=== PATIENT | female | born 1945 | race Caucasian/White ===

== ENCOUNTER → 2020-06-11 12:29 | Outpatient (CLI) | payer MEDICARE, SELFPAY ==
--- NOTE | ~2020-06-11 | MM_ITS ---
EXAMINATION: MM scrn joleen implant BI w alanis HISTORY: Screening mammogram, family history of breast cancer in her sister. TECHNIQUE: Craniocaudal and mediolateral oblique 3-D tomosynthesis images with implant displacement a nd synthetic 2-D images were generated. Craniocaudal and mediolateral oblique views of the breasts wi thout implant displacement were obtained using full field digital mammography. CAD analysis was submi tted and interpreted. COMPARISON: 08/29/2018, 07/11/2017, 04/13/2016 BREAST PARENCHYMAL COMPOSITION: There are scattered areas of fibroglandular density. FINDINGS: Silicone breast implants are present with evidence of bilateral rupture. There is no eviden ce of suspicious mass, calcification, or architectural distortion to suggest malignancy in either nichole ast. There has been no suspicious interval change. IMPRESSION: 1. No mammographic evidence of malignancy. 2. Recommend routine screening mammography in one year. BI-RADS Category 1: Negative Reviewed, dictated and finalized at location A. 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
== END ==
PROVIDERS: PCP Internal Medicine; Visit Provider Obstetrics & Gynecology
DX: Z12.31 Encounter for screening mammogram for malignant neoplasm of breast (principal)
CPT/HCPCS: 77063; 77067

== ENCOUNTER → 2021-01-06 13:34 | Outpatient (CLI) | payer MEDICARE, SELFPAY ==
--- NOTE | ~2021-01-06 | MR_ITS ---
EXAMINATION: MR cervical spine wo con EXAM DATE: 01/06/2021 14:47 INDICATION: Cervical radiculopathy, right-sided neck pain and shoulder pain. TECHNIQUE: Multi-sequential, multiplanar MR images of the cervical spine were obtained without contra st. Axial T2, axial T2 MERGE sequence. Sagittal T1, T2, T2 fat saturation images also obtained. Com parison is made to prior examination from 12/23/2016. FINDINGS: The spinal cord signal intensity and intrinsic morphology is normal. Cervicomedullary junc tion is normal in appearance. The C2-3 and C4-5 vertebral bodies are partially fused. Large anterior bridging fused endplate osteophytes from C3-C7 There is 2 mm anterolisthesis C7 on T1. Mild disc dise ase at C3-4 and mild to moderate at C7-T1. Paraspinal soft tissue is unremarkable. There are no suspi cious marrow signal abnormalities. Level by level evaluation: C2-C3: This level is fused. Uncovertebral joint arthropathy: None. Facet joint arthropathy: Moderate but fused left, mild right. Neural foraminal stenosis: No stenosis. Central canal stenosis: No stenosis. C3-C4: There is a mild diffuse disc bulge. Uncovertebral joint arthropathy: Moderate left, mild to moderate right. Facet joint arthropathy: Severe but fused left, mild right. Neural foraminal stenosis: Moderate left, mild right. Central canal stenosis: Mild. C4-C5: Disc does not extend beyond the endplate margin. Uncovertebral joint arthropathy: Mild bilateral. Facet joint arthropathy: Mild to moderate left, mild right. Neural foraminal stenosis: No stenosis. Central canal stenosis: No stenosis. C5-C6: Disc does not extend beyond the endplate margin. Uncovertebral joint arthropathy: Mild bilateral. Facet joint arthropathy: Mild bilateral. Neural foraminal stenosis: Mild right. Central canal stenosis: No stenosis. C6-C7: Disc does not extend beyond the endplate margin. Uncovertebral joint arthropathy: Mild bilateral. Facet joint arthropathy: Mild bilateral. Neural foraminal stenosis: No stenosis. Central canal stenosis: No stenosis. C7-T1: There is a mild diffuse disc bulge. Uncovertebral joint arthropathy: Mild bilateral. Facet joint arthropathy: Moderate right, mild to moderate left. Neural foraminal stenosis: Mild bilateral. Central canal stenosis: No stenosis. Compared to previous examination, some progression of the fusion of vertebral bodies, anterior large osteophyte. The left-sided C3-4 facet joints have fused in addition to previously fused C2-3 facet jace ints. Mild progression in other degenerative changes. IMPRESSION: 1. Partially fused cervical spine. 2. Left C3-4 neural foramina most narrowed. Reviewed, dictated and finalized at location B.
== END ==
PROVIDERS: PCP Internal Medicine; Visit Provider Nurse Practitioner Adult Health
DX: Z98.1 Arthrodesis status (principal); M47.22 Other spondylosis with radiculopathy, cervical region; M48.02 Spinal stenosis, cervical region
CPT/HCPCS: 72141

== ENCOUNTER → 2021-04-27 16:14 | Outpatient (CLI) | payer MEDICARE, SELFPAY ==
--- NOTE | ~2021-04-27 | MR_ITS ---
EXAMINATION: MR lumbar spine wo con DATE: 04/27/2021 16:47 INDICATION: Lumbar radicular pain. TECHNIQUE: Magnetic resonance imaging (MRI) of the lumbar spine was performed without intravenous con trast. Sequences included sagittal T2-weighted FSE, sagittal T2-weighted FS FSE, sagittal T1-weighted FSE, and axial T2-weighted FSE. COMPARISON: None FINDINGS: There is 6 degrees levocurvature of lumbar spine. There is a transitional segment at the lizbet mbosacral junction that is designated L5. Vertebral body heights are normal. There is severely decrea sed disc height at L4-L5 with endplate remodeling. The distal spinal cord signal intensity is normal. The conus medullaris is at L1. The following disc levels are specifically discussed: L1-L2: The disc is mildly bulging. There is mild right and moderate left facet joint osteoarthritis. There is no neural foraminal stenosis. There is mild central canal stenosis. L2-L3: The disc is bulging. There is moderate bilateral facet joint osteoarthritis. There is mild carlos ateral neural foraminal stenosis. There is mild central canal stenosis. L3-L4: The disc is bulging. There is severe bilateral facet joint osteoarthritis. There is mild bilat eral neural foraminal stenosis. There is no central canal stenosis. L4-L5: The disc is bulging and has an annular fissure. There is severe bilateral facet joint osteoart hritis. There is mild bilateral neural foraminal stenosis. There is mild central canal stenosis. L5-S1: The disc does not extend beyond the endplate margin. There is no facet joint osteoarthritis. T here is no neural foraminal stenosis. There is no central canal stenosis. IMPRESSION: 1. Severe lower lumbar spondylosis. Reviewed, dictated and finalized at location A.
== END ==
PROVIDERS: PCP Internal Medicine; Visit Provider Nurse Practitioner Family
DX: M54.16 Radiculopathy, lumbar region (principal); M47.816 Spondylosis without myelopathy or radiculopathy, lumbar region
CPT/HCPCS: 72148

== ENCOUNTER → 2021-08-18 16:01 | Outpatient (CLI) | payer MEDICARE, SELFPAY ==
--- NOTE | ~2021-08-18 | MM_ITS ---
EXAMINATION: MM scrn joleen implant BI w alanis HISTORY: Screening mammogram, family history of breast cancer in her sister. TECHNIQUE: Craniocaudal and mediolateral oblique 3-D tomosynthesis images with implant displacement a nd synthetic 2-D images were generated. Craniocaudal and mediolateral oblique views of the breasts wi thout implant displacement were obtained using full field digital mammography. CAD analysis was submi tted and interpreted. COMPARISON: 06/11/2020, 08/29/2018, 07/11/2017 BREAST PARENCHYMAL COMPOSITION: There are scattered areas of fibroglandular density. FINDINGS: Bilateral breast implant rupture is again noted. There is no evidence of suspicious mass, c alcification, or architectural distortion to suggest malignancy in either breast. There has been no s uspicious interval change. IMPRESSION: 1. No mammographic evidence of malignancy. 2. Recommend routine screening mammography in one year. BI-RADS Category 1: Negative Reviewed, dictated and finalized at location A. 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
== END ==
PROVIDERS: PCP Internal Medicine; Visit Provider Obstetrics & Gynecology
DX: Z12.31 Encounter for screening mammogram for malignant neoplasm of breast (principal)
CPT/HCPCS: 77063; 77067

== ENCOUNTER → 2022-03-23 17:07 | Outpatient (CLI) | payer MEDICARE, SELFPAY ==
--- NOTE | ~2022-03-23 | MR_ITS ---
EXAMINATION: MR cervical spine wo con DATE: 03/23/2022 17:43 INDICATION: Myelopathy. TECHNIQUE: Magnetic resonance imaging (MRI) of the cervical spine was performed without intravenous c ontrast. Sequences included sagittal T2-weighted FSE, sagittal T2-weighted FS FSE, sagittal T1-weight ed FSE, axial MERGE, and axial T2-weighted FSE. COMPARISON: Cervical spine MRI 01/06/2021 FINDINGS: There is 2 mm anterolisthesis of C7 on T1. Vertebral body heights are normal. There is mild ly decreased disc height at C4-C5, C5-C6, and C6-C7. There are bulky bridging anterior endplate osteo phytes from C3 to C7, consistent with diffuse idiopathic skeletal hyperostosis (DISH). The spinal cor d signal intensity is normal. There are bilateral mastoid effusions. The following disc levels are sp ecifically discussed: C2-C3: The disc does not extend beyond the endplate margin. There is ankylosis of the uncovertebral j oints without hypertrophy. There is ankylosis of the left facet joint with mild hypertrophy. There is mild left neural foraminal stenosis. There is no central canal stenosis. C3-C4: There is a left central extrusion. There is mild right and severe left uncovertebral joint hyp ertrophy. There is mild right facet joint osteoarthritis. There is ankylosis of left facet joint with severe hypertrophy. There is moderate left neural foraminal stenosis. There is mild central canal st enosis. C4-C5: The disc does not extend beyond the endplate margin. There is no uncovertebral joint hypertrop hy. There is mild bilateral facet joint hypertrophy. There is no neural foraminal stenosis. There is no central canal stenosis. C5-C6: The disc does not extend beyond the endplate margin. There is no uncovertebral joint hypertrop hy. There is no facet joint hypertrophy. There is no neural foraminal stenosis. There is no central c anal stenosis. C6-C7: The disc does not extend beyond the endplate margin. There is no uncovertebral joint hypertrop hy. There is no facet joint hypertrophy. There is no neural foraminal stenosis. There is no central c anal stenosis. C7-T1: The disc does not extend beyond the endplate margin. There is no uncovertebral joint osteoarth ritis. There is severe bilateral facet joint osteoarthritis. There is mild bilateral neural foraminal stenosis. There is no central canal stenosis. IMPRESSION: 1. Stable moderate left neural foraminal stenosis at C3-C4. Otherwise mild cervical spondylosis, stab le from 01/06/2021. 2. DISH. Reviewed, dictated and finalized at location A. IMPRESSION: 1. Stable moderate left neural foraminal stenosis at C3-C4. Otherwise mild cerv ical spondylosis, stable from 01/06/2021. 2. DISH.
== END ==
PROVIDERS: PCP Internal Medicine; Visit Provider Nurse Practitioner Acute Care
DX: M48.02 Spinal stenosis, cervical region (principal); M47.812 Spondylosis without myelopathy or radiculopathy, cervical region; M48.12 Ankylosing hyperostosis [Forestier], cervical region
CPT/HCPCS: 72141

== ENCOUNTER → 2022-08-24 16:11 | Outpatient (CLI) | payer MEDICARE, SELFPAY ==
--- NOTE | ~2022-08-24 | XR_ITS ---
EXAM: XR shoulder RT min 2V DATE: 08/24/2022 17:00 HISTORY: Pain in right shoulder . COMPARISON: 04/18/2016, MR shoulder 02/28/2017. FINDINGS: Normal mineralization. No fracture or dislocation. No lytic or blastic lesion. Moderate AC joint hypertrophy. Moderate glenohumeral osteoarthritis. Cysts in the superolateral aspect of the hu meral head. Superior humeral head migration. No erosion or periosteal change. Soft tissues within nor mal limits. IMPRESSION: Moderate polyarticular osteoarthritis. Rotator cuff pathology. Reviewed, dictated and finalized at location K. 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
--- NOTE | ~2022-08-24 | MR_ITS ---
EXAMINATION: MR lumbar spine wo con DATE: 08/24/2022 17:03 INDICATION: Radiculopathy, lumbar region. TECHNIQUE: Magnetic resonance imaging (MRI) of the lumbar spine was performed without intravenous con trast. Sequences included sagittal T2-weighted FSE, sagittal T2-weighted FS FSE, sagittal T1-weighted FSE, and axial T2-weighted FSE. COMPARISON: Lumbar spine MRI 04/27/2021 FINDINGS: There is 5 degrees levocurvature of lumbar spine. There is a transitional segment at the lizbet mbosacral junction that is designated L5. Vertebral body heights are normal. There is a hemangioma in T11 vertebral body. There is severely decreased disc height at L4-L5 with endplate remodeling. The d istal spinal cord signal intensity is normal. The conus medullaris is at L1. The following disc level s are specifically discussed: L1-L2: The disc is mildly bulging. There is mild bilateral facet joint osteoarthritis. There is mild left neural foraminal stenosis. There is mild central canal stenosis. L2-L3: The disc is bulging. There is severe bilateral facet joint osteoarthritis. There is mild bilat eral neural foraminal stenosis. There is mild central canal stenosis. L3-L4: The disc is bulging. There is severe bilateral facet joint osteoarthritis. There is mild bilat eral neural foraminal stenosis. There is mild central canal stenosis. L4-L5: The disc is bulging and has an annular fissure. There is severe bilateral facet joint osteoart hritis. There is mild bilateral neural foraminal stenosis. There is mild central canal stenosis. L5-S1: The disc does not extend beyond the endplate margin. There is no facet joint hypertrophy. Ther e is no neural foraminal stenosis. There is no central canal stenosis. IMPRESSION: 1. Severe lower lumbar spondylosis, stable from 04/27/2021. Reviewed, dictated and finalized at location A. 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
== END ==
PROVIDERS: PCP Internal Medicine; Visit Provider Nurse Practitioner Family
DX: M54.16 Radiculopathy, lumbar region (principal); M25.511 Pain in right shoulder; M43.06 Spondylolysis, lumbar region; M19.011 Primary osteoarthritis, right shoulder
CPT/HCPCS: 72148; 73030

== ENCOUNTER → 2022-09-22 16:46 | Outpatient (CLI) | payer MEDICARE, SELFPAY ==
--- NOTE | ~2022-09-22 | MM_ITS ---
EXAMINATION: MM scrn joleen implant BI w alanis HISTORY: Screening mammogram TECHNIQUE: Craniocaudal and mediolateral oblique 3-D tomosynthesis images with implant displacement a nd synthetic 2-D images were generated. Craniocaudal and mediolateral oblique views of the breasts wi thout implant displacement were obtained using full field digital mammography. CAD analysis was submi tted and interpreted. COMPARISON: 07/29/2021, 06/11/2020, bilateral implant screening mammogram examinations BREAST PARENCHYMAL COMPOSITION: There are scattered areas of fibroglandular density. FINDINGS: Status post bilateral augmentation mammoplasty. There is no evidence of suspicious mass, ca lcification, or architectural distortion to suggest malignancy in either breast. There has been no langston spicious interval change. IMPRESSION: 1. No mammographic evidence of malignancy. 2. Recommend routine screening mammography in one year. BI-RADS Category 1: Negative Reviewed, dictated and finalized at location A. IC SERVICE DIRECTOR
== END ==
PROVIDERS: PCP Internal Medicine; Visit Provider Obstetrics & Gynecology
DX: Z12.31 Encounter for screening mammogram for malignant neoplasm of breast (principal); Z98.82 Breast implant status
CPT/HCPCS: 77063; 77067

== ENCOUNTER 2023-05-06 10:17 | Outpatient (CLI) | payer MEDICARE, SELFPAY ==
--- NOTE | 2023-05-06 10:36 | ECG_ITS ---
Measurements Intervals Ryder Rate: 52 P: 59 LA: 159 QRS: 18 QRSD: 94 T: 60 QT: 408 QTc: 380 Interpretive Statements SINUS BRADYCARDIA OTHERWISE NORMAL ECG NO PREVIOUS ECG AVAILABLE FOR COMPARISON Electronically Signed On 05-06-2023 14:01:03 CDT by Kaleb Schwarz M.D.
[2023-05-06 11:01] LABS: Hemoglobin 13.3 g/dL (12.0-15.0); Mean Corpuscular HGB Conc 32.4 g/dl (32-36); Mean Corpuscular Volume 95.6 fl (80-100); Mean Platelet Volume 9.3 fl (7.4-10.4); Platelet Count Result 291 k/mm3 (150-375); Red Blood Count 4.29 M/mm3 (4.2-5.4); Red Cell Distribution Width 12.7 % (11.5-14.5); White Blood Count 8.1 K/mm3 (4.5-10.0)
[2023-05-06 11:13] LABS: Appearance Urine Clear (Clear); Bacteria Urine None Seen /hpf; Bilirubin Urine Negative (Negative); Blood Urine Negative (Negative); Color Urine Yellow (Yellow); Glucose Urine UA Negative (Negative); Ketones Urine Negative (Negative); Leukocyte Esterase Ur 1+ LEU/UL (Negative); Need Manual Microscopic Reviewed; Nitrate Urine Negative (Negative); Non Pathogenic Casts 0-2; Protein Urine Negative (Negative); RBC Urine 0-2 /hpf (0-2); Specific Grav Ur 1.014 (1.001-1.035); Squamous Epithelial Cell Urine Occasional /hpf (Few); Urobilinogen Urine 0.2 mg/dL (<2.0); WBC Urine 0-5 /hpf; pH Urine 5.5 (5.0-9.0)
[2023-05-06 11:13] LABS: Prothrombin Time 13.7 Seconds (11.1-14.7)
[2023-05-06 11:35] LABS: Add Urine Microscopic? YES
== END 2023-05-06 10:18 | disposition home or self-care (01) ==
LOC: ANHSURGERY 10:23
PROVIDERS: PCP Internal Medicine; Visit Provider Neurological Surgery
DX: Z01.818 Encounter for other preprocedural examination (principal); M46.1 Sacroiliitis, not elsewhere classified; R00.1 Bradycardia, unspecified
CPT/HCPCS: 36415; 81001; 85027; 85610; 85730; 86850; 86900; 86901; 93005

== ENCOUNTER 2023-05-10 13:58 | Inpatient (IN) | payer MEDICARE, SELFPAY ==
--- NOTE | 2023-05-02 11:26 | PC.NURSE ---
Report to the Outpatient Waiting Room, entrance under the green pavilion located off [facility], at time _0800 on date _05/10/23 . Planned Procedure Time: __1000 . Time changes happen often and if your time is changed the preop area will call you the afternoon before. - You and your visitor will be asked to self-screen and do not enter if you have any COVID symptoms. - A mask is optional within the hospital at this time. Patients may have clear liquids (water, carbonated beverages, clear teas, apple juice) until 3 hours prior to surgery with a maximum of 20 ounces. - No food from midnight until time of surgery - Infants may have breast milk until 4 hours before surgery, formula 6 hours prior to surgery. - Children will be allowed to drink immediately following surgery. If applicable, please bring a bottle or sippy cup to assist with drinking. Juice, water, soda, and popsicles are readily available. For infants on formula, please bring formula the day of surgery. Pacifiers are allowed. Take the following medications with a SIP of water the morning of surgery: ___CARVEDILOL DO NOT STOP ANY OF YOUR OTHER PRESCRIPTION MEDICATIONS PRIOR TO SURGERY ?EXCEPT THE FOLLOWING Medications to discontinue per physician __RIZWANA JARVIS Please no make-up, nail bengali, hairspray, perfume, deodorant, or body powder the day of surgery. No jewelry (including any body piercings) or valuables the day of surgery, leave them at home. Please take a shower or bath the night before, or the morning of, surgery with an antibacterial soap. Wear comfortable, loose fitting clothing. Children are encouraged to wear pajamas. - Jewelry must be removed prior to entering the operating room. Rings and piercings that are not removed may be cut off. - The hospital will not accept responsibility for valuables. - Please leave all valuables, including medications, at home the day of surgery. If you are going home after surgery, a licensed water taxi driver must drive you home. - NO public transportation without another adult if you receive anesthesia. - We recommend that an adult stay with you for 24 hours following discharge. - We also recommend that you do not drive, make important decision, drink alcoholic beverages, or take any drugs that were not prescribed by your health care provider for at least 24 hours after your discharge time. For Pediatric surgeries, we recommend two adults accompany the child home. Follow any additional instructions given to you from your surgeon. If you or anyone in your household have experienced Covid symptoms in the past week, please notify your surgeon or the nurse liaison at the phone number below for possible testing. Telephone instructions given to __PATIENT and asked if any additional questions and then verbalized understanding. Patient advised to call surgeon office or pre surgery nurse liaison [phone] if any additional questions.
[2023-05-02 11:35] VITALS: BMI 23.4
--- NOTE | 2023-05-09 15:10 | WPDANESEPPF ---
Anes - Initial Pre Proc Eval Procedure: Operation Date: 05/10/23 10:00 Proposed Procedures p Right Sacroiliac Joint Fusion - Daryl Gray MD Date/Time: 05/09/23 15:10 Surgeon: Daryl Gray MD Pre Op Diagnosis: Right Scoliosis Patient Data Age: 78 Gender: F Height: 1.57 m Weight: 58.1 kg Allergies Allergy/AdvReac Type Severity Reaction Status Date / Time codeine Allergy Severe Vomiting Verified 05/10/23 08:29 tramadol Allergy Severe Vomiting Verified 05/10/23 08:29 Quinolones Allergy Mild Swelling Verified 05/10/23 08:29 trazodone Allergy Mild Jittery Verified 05/10/23 08:29 Home Medications Medication Instructions Recorded Confirmed Type hydrocortisone 2.5 % topical cream 1 applic RECTAL DAILY PRN 02/02/23 05/10/23 Rx with perineal applicator hemorrhoids #30 grams (Anusol-HC) carvedilol 12.5 mg tablet 12.5 mg PO Q12H #180 tabs 03/12/23 05/10/23 Rx amitriptyline 25 mg tablet 25 mg PO QHS #90 tabs 03/16/23 05/10/23 Rx alprazolam 0.5 mg tablet 0.5 mg PO QHS PRN anxiety #30 tabs 05/02/23 05/10/23 Rx amlodipine 5 mg tablet 5 mg PO HS 05/02/23 05/10/23 History diclofenac sodium 100 mg 100 mg PO HS 05/02/23 05/10/23 History tablet,extended release 24 hr fluoxetine 40 mg capsule 40 mg PO HS 05/02/23 05/10/23 History fluticasone propionate 50 2 spray intranasal PRN PRN nasal 05/02/23 05/10/23 History mcg/actuation nasal congestion spray,suspension omeprazole 20 mg capsule,delayed 20 mg PO HS 05/02/23 05/10/23 History release pravastatin 20 mg tablet 20 mg PO HS 05/02/23 05/10/23 History Patient hx anesthesia problems: post op nausea/vomiting (states severe with pain medications; has used IV Tylenol with some success for PONV) Family hx anesthesia problems: none Results Review: All pre-operative results and documents have been reviewed as part of the pre-operative evaluation. [facility] Past Medical History Medical History Abdominal cramps Abnormal weight loss Acute pain of right shoulder Adhesive capsulitis of right shoulder Adult general medical exam Anemia, unspecified Back pain, chronic Diarrhea Encounter for HCV screening test for low risk patient Generalized abdominal pain Hyperkalemia Incomplete tear of right rotator cuff Insomnia, unspecified Osteoarthritis of spine with radiculopathy, cervical region Other chronic pain Other fatigue Primary osteoarthritis, right shoulder Pure hypercholesterolemia Family History Family History Mother Patient's mother is Hypertension Depression Anxiety Heart problem Father Alcoholism Sibling Cancer Hypertension Heart problem Other Family history of alcoholism Family history of arthritis Family history of cardiovascular disease Family history of malignant neoplasm Social History Social History Smoking packs per day: 1 Smoking cigarettes per day: 20.0 Years smoked: 35 Smoking pack-years: 35.00 Smoking status: Former smoker Tobacco type: cigarettes Second hand tobacco smoke exposure: No Smoking end date: 09/23/99 Alcohol intake: current Drinks per week: 3 Substance use: never Lack of Transportation: No Lack of Food: Never True Current Housing: I Have Housing Concerned About Future Housing: No Difficulty Paying Gas/Electric Bills: No Difficulty Paying for Meds: No Currently Unemployed: No Education: High School Diploma/GED Difficulty w/ Childcare or Family Care: No Living arrangements: alone Occupation/Education: retired Gender identity (if verbalized by the patient): Female Sexual Orientation (if Verbalized by the Patient): Straight or Heterosexual Spiritual care concerns: No Anes - Eval Final PreProcedure Day of Procedure 05/09/23 15:10 Patient weight: normal Heart:
[2023-05-10] VITALS (12 sets, daily range): BP systolic 126–160; BP diastolic 44–64; PULSE 54–77; RESP 12–20; TEMP 35.3–36.6; O2SAT 95–100
--- NOTE | ~2023-05-10 | XR_ITS ---
EXAMINATION: XR fluoroscopy no charge DATE: 05/10/2023 11:48 INDICATION: Right sacroiliac joint effusion. TECHNIQUE: 3 intraoperative fluoroscopic views of the pelvis were obtained. I was not present. Fluoro scopy exposure time was 2 minutes 4 seconds. COMPARISON: None. FINDINGS: There are changes of ankylosis procedure of right sacroiliac joint with 3 screws. There is severe lumbar spondylosis. IMPRESSION: 1. Ankylosis procedure of right sacroiliac joint. Reviewed, dictated and finalized at location E.
[2023-05-10] MEDS: LACTATED RINGERS 1,000 ML 30 ML IV CONT ×2 (08:40→12:44)
[2023-05-10] MEDS: IBUPROFEN IV 800 MG/200 ML 800 MG/200 ML BAG 400 MG IVPB (10:08)
[2023-05-10] MEDS: SCOPOLAMINE 1.5 MG PATCH TRANSDERM (10:08)
--- NOTE | 2023-05-10 10:12 | PM.IMHP ---
H&P: HPI History of Present Illness Date/Time: 05/10/23 10:12 Chief Complaint: Right sacroiliac joint pain Narrative: Ivanna is a 78-year-old female with right SI joint pain presents for right SI joint fusion from a lateral open approach. She has not changed appreciably since we last saw her. She does not have specific muscle group weakness or dermatomal numbness. She is not having bowel or bladder difficulty. Review of Systems Review of Systems: Patient denies shortness of breath, cough, fever, chills, nausea, vomiting, weight loss, weight gain, chest pain, dysuria. She has sacroiliac pain as above. Review of systems is otherwise negative on 12 systems except as noted elsewhere. [facility]LY [facility], [facility] Past Medical History Medical History Abdominal cramps Abnormal weight loss Acute pain of right shoulder Adhesive capsulitis of right shoulder Adult general medical exam Anemia, unspecified Back pain, chronic Diarrhea Encounter for HCV screening test for low risk patient Generalized abdominal pain Hyperkalemia Incomplete tear of right rotator cuff Insomnia, unspecified Osteoarthritis of spine with radiculopathy, cervical region Other chronic pain Other fatigue Primary osteoarthritis, right shoulder Pure hypercholesterolemia Family History Family History Mother Patient's mother is Hypertension Depression Anxiety Heart problem Father Alcoholism Sibling Cancer Hypertension Heart problem Other Family history of alcoholism Family history of arthritis Family history of cardiovascular disease Family history of malignant neoplasm Social History Social History Smoking packs per day: 1 Smoking cigarettes per day: 20.0 Years smoked: 35 Smoking pack-years: 35.00 Smoking status: Former smoker Tobacco type: cigarettes Second hand tobacco smoke exposure: No Smoking end date: 09/23/99 Alcohol intake: current Drinks per week: 3 Substance use: never Lack of Transportation: No Lack of Food: Never True Current Housing: I Have Housing Concerned About Future Housing: No Difficulty Paying Gas/Electric Bills: No Difficulty Paying for Meds: No Currently Unemployed: No Education: High School Diploma/GED Difficulty w/ Childcare or Family Care: No Living arrangements: alone Occupation/Education: retired Gender identity (if verbalized by the patient): Female Sexual Orientation (if Verbalized by the Patient): Straight or Heterosexual Spiritual care concerns: No Meds Home Medications and Allergies Home Medications Medication Instructions Recorded Confirmed Type hydrocortisone 2.5 % topical cream 1 applic RECTAL DAILY PRN 02/02/23 05/10/23 Rx with perineal applicator hemorrhoids #30 grams (Anusol-HC) carvedilol 12.5 mg tablet 12.5 mg PO Q12H #180 tabs 03/12/23 05/10/23 Rx amitriptyline 25 mg tablet 25 mg PO QHS #90 tabs 03/16/23 05/10/23 Rx alprazolam 0.5 mg tablet 0.5 mg PO QHS PRN anxiety #30 tabs 05/02/23 05/10/23 Rx amlodipine 5 mg tablet 5 mg PO HS 05/02/23 05/10/23 History diclofenac sodium 100 mg 100 mg PO HS 05/02/23 05/10/23 History tablet,extended release 24 hr fluoxetine 40 mg capsule 40 mg PO HS 05/02/23 05/10/23 History fluticasone propionate 50 2 spray intranasal PRN PRN nasal 05/02/23 05/10/23 History mcg/actuation nasal congestion spray,suspension omeprazole 20 mg capsule,delayed 20 mg PO HS 05/02/23 05/10/23 History release pravastatin 20 mg tablet 20 mg PO HS 05/02/23 05/10/23 History Allergies Allergy/AdvReac Type Severity Reaction Status Date / Time codeine Allergy Severe Vomiting Verified 05/10/23 08:29 tramadol Allergy Severe Vomiting Verified 05/10/23 08:29 Quinolones Allergy Mild Swelling Verified 05/10/23 08:29 trazodone Allergy Mild Jittery Guzman
[2023-05-10] MEDS: ceFAZolin 2 GM/D5W 50 ML 2 GM/50 ML BAG IVPB (10:13)
--- NOTE | 2023-05-10 10:14 | WPDHPUPDATE1 ---
History and Physical Update Update Date/Time: 05/10/23 10:14 History and Physical has been reviewed, including an updated exam of the patient. There are NO changes in the patient's condition. Risks, benefits, and alternatives have been discussed and questions answered. Patient agrees to proceed with procedure.
[2023-05-10] MEDS: LIDO 1%/EPINEPHRINE 1:100,000 50 ML VIAL 30 ML INFILTRATE (10:47)
--- NOTE | 2023-05-10 11:46 | W.PM.PROC2 ---
Procedure Note - Detailed Date of Procedure 05/10/23 Pre-op Diagnosis Right Scoliosis Post-op Diagnosis Same Procedure Performed Right sacroiliac joint fusion, open, lateral Surgeon Daryl Gray MD Anesthesia General Description of Procedure Patient was brought to the operating room in the supine position, was sedated, intubated placed under general anesthesia in routine fashion. She was then turned into the prone position on gel rolls. The area of operation on her right buttock was examined, marked for incision, prepped and draped in routine sterile fashion. Incision was marked using fluoroscopy based on the outline of the sacrum. Inlet and outlet views were also confirmed. The area of incision was injected with 0.5% lidocaine with [id number] epinephrine. Intravenous antibiotics given prior to incision. Incision was made with a 10 blade scalpel. Sharp guidewire was advanced to the ileum. In lateral view was confirmed the behind the a lower Line. Using and then outlet views the wire was advanced across the SI joint and confirmed to be within the anterior margin of the sacrum and short of the foraminal line. The measurement was taken in a 50 mm device was chosen by 11.5 mm. The guidewire was extended and a drill and tap were used under fluoroscopy using the outlet view. The device was then placed over the wire under fluoroscopy short of the foraminal line. A guide tube was used to place 2nd and 3rd wire and sequentially the exact same procedure was performed. A measurement was taken, device was chosen, the wire was extended, a drill and tap were used in the device was placed under fluoroscopy using the outlet view. The wires were placed against the ilium in the lateral view and advanced across the sacroiliac joint using the and then outlet views to make sure that they were in front of the anterior margin of the sacrum and short of the foraminal line. Of 40 mm device was used in the 2nd position a 45 mm device in the 3rd position. Each was 11.5 mm diameter device. Verifying x-rays were obtained to verify good position of the devices in the inlet, outlet and lateral views. The wound was then closed in layered fashion after copious irrigation with bacitracin irrigation. 3-0 Vicryl interrupted sutures were placed in the dermis and a running 4-0 Monocryl subcu stitch to the skin which was dressed with Dermabond. Patient was not awakened in the operating room and was taken to the recovery room stable condition. There were no immediate complications of this operation. All counts were reported correct in the case. Blood loss was 25 cc the patient neurologically at her baseline postoperatively. Implants CoreLink titanium threaded hollow dowels across the SI joint Estimated Blood Loss 25 IV Fluids 1,000 Complications None Condition Stable Disposition PACU [facility] Billing Surgery - Charge Forward: Surgery Billing
--- NOTE | 2023-05-10 13:31 | ADMGEN ---
This patient, Ivanna Gayle, was admitted to 2 Medical Room 241-01. Patient/family oriented to hospital policies and general routines including ID bracelet, bed and alarms, visiting hours, pain management, procedures, bathroom and other care routines, personal items, smoking policy, room service/diet, and visiting hours. Information on how to activate the Rapid Response Team has been discussed. Patient/Family are encouraged to report perceived risks to care and to ask questions if they do not understand what they are told or what they should do.
[2023-05-10] MEDS: KCL 20 MEQ/D5/0.45% SOD CHL 1,000 ML 100 ML IV CONT (13:57)
[2023-05-10] MEDS: carvediloL 12.5 MG TABLET PO (17:14)
[2023-05-10] MEDS: PRAVASTATIN SODIUM 20 MG TABLET PO (21:06)
[2023-05-10] MEDS: AMITRIPTYLINE HCL 25 MG TABLET PO (21:07)
[2023-05-10] MEDS: FLUoxetine HCL 20 MG CAPSULE 40 MG PO (21:07)
[2023-05-10] MEDS: amLODIPine BESYLATE 5 MG TABLET PO (21:07)
[2023-05-10] MEDS: PANTOPRAZOLE 40 MG TABLET PO (21:07)
[2023-05-10] MEDS: ALPRAZolam (*CRX) 0.5 MG TABLET PO (23:04)
[2023-05-11 00:14] VITALS: BP 175/67; PULSE 73; RESP 20; TEMP 36.1; O2SAT 98
[2023-05-11] MEDS: KCL 20 MEQ/D5/0.45% SOD CHL 1,000 ML 100 ML IV CONT (04:43)
[2023-05-11 04:55] VITALS: BP 152/46; PULSE 72; RESP 16; TEMP 36.2; O2SAT 94
[2023-05-11 05:24] VITALS: PULSE 72
[2023-05-11] MEDS: carvediloL 12.5 MG TABLET PO (05:24)
[2023-05-11 08:14] VITALS: BP 141/44; PULSE 61; RESP 16; TEMP 36.6; O2SAT 96
--- NOTE | 2023-05-11 10:10 | WPDANESPN ---
Anes - Prog Note Post-Op Date/Time: 05/11/23 10:10 Cardiovascular status: normal Respiratory status: normal Airway patency: baseline Mental status: baseline Post-Op hydration status: normal Vital Signs: Last Vital Signs Temp 36.6 C 05/11/23 08:14 Pulse 61 05/11/23 08:14 Resp 16 05/11/23 08:14 BP 141/44 H 05/11/23 08:14 Pulse Ox 96 05/11/23 08:14 O2 Del Method Room Air 05/10/23 20:55 O2 Flow Rate 6 05/10/23 12:15 Pain Score (VAS): 0 I/O: Intake & Output 05/10/23 05/11/23 05/11/23 23:59 07:59 15:59 Intake Total 1480 1000 240 Balance 1480 1000 240 Post-procedural complaints: none Patient Feedback: Patient satisfied with anesthetic care.
[2023-05-11 12:14] VITALS: BP 138/48; PULSE 62; RESP 16; TEMP 36.5; O2SAT 96
[2023-05-11 16:14] VITALS: BP 136/44; PULSE 63; RESP 16; TEMP 36.5; O2SAT 96
--- NOTE | 2023-05-16 21:28 | PM.DS ---
DS: Admitting Diagnosis Discharge Date 05/11/23 Admitting Diagnosis Right sacroiliitis DS: Discharge Diagnosis Discharge Diagnosis (1) Sacroiliitis: Code(s): M46.1 - Sacroiliitis, not elsewhere classified Status: Acute DS: Summary Hospital Course Hospital Course: patient was taken the operating room on 05/10/2023 with the for mentioned right sacroiliac joint fusion was performed without complication. The patient went to the floor postoperatively. Physical and occupational therapy were involved in her care. On postop day 1 she was eating, ambulating and emptying her bladder and her pain was under control with by mouth pain medicine. Her wound remained clean dry and intact. She was afebrile with stable vital signs. She was therefore allowed to be discharged home. Time Spent with Patient Time attestation: Total time spent providing and/or coordinating discharge services: Discharge Plan Discharge Attending physician on discharge: Daryl Gray Consulting providers: Warren Pratt; Joao Cain V. Discharging Clinician: Daryl Gray Anticipated Discharge Date/Time: 05/11/23 18:04 Patient Disposition: Home, Self-Care Activity: may shower Diet: as tolerated Wound Care Instructions: follow printed instructions Discharge Instructions: INSTRUCTIONS AFTER YOUR LUMBAR LAMINECTOMY/DECOMPRESSION/FORAMINOTOMY/DISCECTOMY Incisions may be closed with either: Steri-strips (let them wear off on their own). Surgical glue (let it peel off on its own). Sutures or tiago (call the office for an appointment to have these removed). Keep the incision dry for the first three days after surgery. Never apply ointments or lotions to the incision. The incision should be checked daily. Notify the office if there is drainage, redness, or if you have fever with a temperature of over 100 degrees. After the third postop day, it is okay to shower. Let soap and water run over your incision. No soaking in a tub, hot tub, or pool for at least one month. You are encouraged to walk as much as comfortable, with assistance as needed. For example, it may be beneficial to walk short distances hourly during the waking hours and gradually increase walking during your recovery period. Fatigue can be common. Avoid any bending, heavy lifting, twisting movements. You have an ratzu-cd-wew-pound lift restriction until further advised by your physician (A gallon of milk weighs eight pounds). Make frequent position changes, avoiding long periods of sitting. Try not to sit more than 30 minutes at a time. You may engage in sexual activity in two weeks as tolerated. No housework, especially vacuuming, making beds, or doing laundry until seen in the office. You may walk stairs carefully. Minimize car rides for two weeks. Driving can usually be resumed within two weeks; however, you may not drive at that time if still taking pain medications. Once you are discharged from the hospital, please call the office to set up your postop appointment. The physician may order pain medication and/or muscle relaxers. As time goes by, you should require less of these. Always take your medication as ordered, and only if needed. If you take more than prescribed, it will not be refilled early. If you feel you require narcotic medication refill, kindly give the office a 72-hour notice. No refills are given over the weekend. Anti-inflammatory meds (like Ibuprofen, Aleve, Advil, Motrin) may be used if approved by your surgeon. Over the counter Tylenol products may be used but use caution mixing Tylenol with your pain medication. The common pain pills include Acetaminophen as an ingredient, you could cause liver damage if taking too much. Tylenol and Acetaminophen are the same drug. Resume your usual diet. Constipation is a common problem postop, especially when taking narcotic pain medications. You may use any over the counter laxative, or stool soft
== END 2023-05-11 18:30 | disposition home or self-care (01) | DRG 460 ==
LOC: ANHSURGERY 14:01 → ANH2MED 14:01
PROVIDERS: Admitting Provider Neurological Surgery; PCP Internal Medicine; Visit Provider Neurological Surgery
PROC: 0SG704Z Fusion of Right Sacroiliac Joint with Internal Fixation Device, Open Approach (ICD-10-PCS; CPT 27280; principal; 2023-05-10 10:00)
DX: M46.1 Sacroiliitis, not elsewhere classified (principal); D64.9 Anemia, unspecified; E78.00 Pure hypercholesterolemia, unspecified; E87.5 Hyperkalemia; G89.29 Other chronic pain; M54.9 Dorsalgia, unspecified; M19.011 Primary osteoarthritis, right shoulder; M47.22 Other spondylosis with radiculopathy, cervical region; Z87.891 Personal history of nicotine dependence
CPT/HCPCS: 97161; 97165; 97530; 97535; 99199; A9270; C1713; J0690; J1170; J1741; J2405; J3010; J3370; J3480; J7120

== ENCOUNTER 2023-10-28 12:40 | Outpatient (CLI) | payer MEDICARE, SELFPAY ==
--- NOTE | ~2023-10-28 | MR_ITS ---
EXAMINATION: MR cervical spine wo con DATE: 10/28/2023 13:31 INDICATION: Cervical radiculopathy. TECHNIQUE: Magnetic resonance imaging (MRI) of the cervical spine was performed without intravenous c ontrast. COMPARISON: None FINDINGS: There is 6 degrees levocurvature of cervicothoracic spine. There is 2 mm anterolisthesis of C7 on T1. Vertebral body heights are normal. There are of the bridging anterior osteophytes from C3 to C7, consistent with diffuse idiopathic skeletal hyperostosis (DISH). There is mildly decreased dis c height at C4-C5 and C5-C6. The spinal cord signal intensity is normal. The following disc levels ar e specifically discussed: C2-C3: The disc does not extend beyond the endplate margin. There is ankylosis of the uncovertebral j oints without hypertrophy. There is ankylosis of left facet joint with mild hypertrophy. There is mil d left neural foraminal stenosis. There is no central canal stenosis. C3-C4: There is a central protrusion. There is mild right and severe left uncovertebral joint hypertr ophy. There is ankylosis of left facet joint with severe hypertrophy. There is severe left neural for aminal stenosis. There is mild central canal stenosis. C4-C5: The disc does not extend beyond the endplate margin. There is no uncovertebral joint hypertrop hy. There is ankylosis of right facet joint without hypertrophy. There is no neural foraminal stenosi s. There is no central canal stenosis. C5-C6: The disc does not extend beyond the endplate margin. There is ankylosis of the uncovertebral j oints with mild hypertrophy on the right. There is no facet joint osteoarthritis. There is mild right neural foraminal stenosis. There is no central canal stenosis. C6-C7: The disc does not extend beyond the endplate margin. There is no uncovertebral joint hypertrop hy. There is no facet joint hypertrophy. There is no neural foraminal stenosis. There is no central c anal stenosis. C7-T1: The disc does not extend beyond the endplate margin. There is no uncovertebral joint osteoarth ritis. There is severe bilateral facet joint osteoarthritis. There is mild bilateral neural foraminal stenosis. There is no central canal stenosis. IMPRESSION: 1. Mild cervical spondylosis. 2. DISH. Reviewed, dictated and finalized at location A.
--- NOTE | ~2023-10-28 | XR_ITS ---
EXAM: XR hip BI 2V w AP pelvis DATE: 10/28/2023 13:38 HISTORY: bilateral hip pain no injury . COMPARISON: None available. FINDINGS: Decreased mineralization. No fracture or dislocation. No lytic or blastic lesion. Right SI joint hardware fusion. Lumbar degenerative disc disease. Dystrophic calcification adjacent to the ri ght iliac wing. Bilateral sacralization of L5. Mild bilateral superior hip joint space narrowing. No erosion or periosteal change. Soft tissues within normal limits. IMPRESSION: Mild bilateral hip osteoarthritis. Reviewed, dictated and finalized at location K.
== END 2023-10-28 12:41 ==
LOC: MICIMG 12:44
PROVIDERS: PCP Internal Medicine; Visit Provider Nurse Practitioner Family
DX: M16.0 Bilateral primary osteoarthritis of hip (principal); M47.22 Other spondylosis with radiculopathy, cervical region; M48.12 Ankylosing hyperostosis [Forestier], cervical region
CPT/HCPCS: 72141; 73521

== ENCOUNTER 2024-03-08 09:14 | Outpatient (CLI) | payer MEDICARE, OTHER, SELFPAY ==
--- NOTE | ~2024-03-08 | US_ITS ---
Limited ABDOMINAL ULTRASOUND Ordering provider: Peewee Lawson DO History: . R79.89 - Other specified abnormal findings of blood chemi... . Comparison: None. FINDINGS: LIVER: Normal size and echotexture. No focal hepatic lesions or perihepatic fluid collections are jhon ntified. Portal vein flow is normal. GALLBLADDER: Cholelithiasis. No evidence for sludge, gallbladder wall thickening or pericholecystic f luid collections. A negative sonographic Topete's sign was noted. BILIARY DUCTS: No evidence for intra or extrahepatic biliary dilation. Common bile duct measures 3.8 mm in diameter which is within normal limits. PANCREAS: Normal echotexture and size. IMPRESSION: Cholelithiasis with no evidence of cholecystitis. Otherwise, unremarkable limited Ultrasound of the a bdomen. Reviewed, dictated and finalized at location A. IMPRESSION: Cholelithiasis with no evidence of cholecystitis. Otherwise, unremarkable limit ed Ultrasound of the abdomen.
== END 2024-03-08 09:15 ==
LOC: MICIMG 09:15
PROVIDERS: PCP Internal Medicine; Visit Provider Internal Medicine
DX: R79.89 Other specified abnormal findings of blood chemistry (principal); K80.20 Calculus of gallbladder without cholecystitis without obstruction
CPT/HCPCS: 76705

== ENCOUNTER 2024-03-20 14:43 | Outpatient (CLI) | payer MEDICARE, OTHER, SELFPAY ==
--- NOTE | ~2024-03-20 | MM_ITS ---
EXAMINATION: MM scrn joleen implant BI w alanis HISTORY: Screening mammogram TECHNIQUE: Craniocaudal and mediolateral oblique 3-D tomosynthesis images with implant displacement a nd synthetic 2-D images were generated. Craniocaudal and mediolateral oblique views of the breasts wi thout implant displacement were obtained using full field digital mammography. CAD analysis was submi tted and interpreted. COMPARISON: Comparison to multiple prior studies sequentially, with oldest reviewed study dated 04/13. BREAST PARENCHYMAL COMPOSITION: Not dense: There are scattered areas of fibroglandular density. FINDINGS: There is no evidence of suspicious mass, calcification, or architectural distortion to sugg est malignancy in either breast. There has been no suspicious interval change. IMPRESSION: 1. No mammographic evidence of malignancy. 2. Recommend routine screening mammography in one year. BI-RADS Category 1: Negative Reviewed, dictated and finalized at location B.
== END 2024-03-20 14:44 | disposition home or self-care (01) ==
LOC: ANHIMG 14:44
PROVIDERS: PCP Internal Medicine; Visit Provider Obstetrics & Gynecology
DX: Z12.31 Encounter for screening mammogram for malignant neoplasm of breast (principal)
CPT/HCPCS: 77063; 77067

== ENCOUNTER 2024-04-09 09:20 | Outpatient (CLI) | payer MEDICARE, OTHER, SELFPAY ==
--- NOTE | ~2024-04-09 | MR_ITS ---
EXAMINATION: MR shoulder RT wo con DATE: 04/09/2024 10:03 INDICATION: Chronic right shoulder pain. TECHNIQUE: Magnetic resonance imaging (MRI) of the right shoulder was performed without intravenous c ontrast. Sequences included axial PD-weighted FS FSE, coronal oblique PD-weighted FS FSE and T2-weigh goldy FS FSE, and sagittal oblique T2-weighted FS FSE and T1-weighted FSE. COMPARISON: Right shoulder MRI 02/28/2017 FINDINGS: Coracoacromial arch: The acromion undersurface is curved in morphology (type II). There is remodeling of the undersurface of the acromion, consistent with cuff arthropathy. There is severe acromioclavicular joint osteoarthr itis including inferiorly directed osteophytes. There is mild subacromial/subdeltoid bursitis. Rotator cuff: There is a full-thickness tear of supraspinatus tendon measuring 17 mm anterior to posterior by 5.0 c m proximal to distal. There is mild infraspinatus tendinopathy. Teres minor tendon is normal. There i s a full-thickness tear of subscapularis tendon. There is volume loss and mild fatty atrophy of supra spinatus and infraspinatus muscle bellies. Biceps tendon and glenoid labrum: There is medial dislocation of biceps tendon from bicipital groove. There is mild biceps tendinopathy . There is degeneration of superior glenoid labrum without well-defined tear. Fluid: There is a small glenohumeral joint effusion. Bones/cartilage: There is deep partial-thickness cartilage loss of superior glenoid with subchondral cyst. There is sh allow partial-thickness cartilage loss of humeral head. IMPRESSION: 1. 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 2. Medial dislocation of biceps tendon from bicipital groove. Mild intra-articular biceps tendinopath y. 3. Moderate glenohumeral joint chondrosis. 4. Severe acromioclavicular joint osteoarthritis. 5. Small glenohumeral joint effusion. Mild subacromial/subdeltoid bursitis. Reviewed, dictated and finalized at location A. IMPRESSION: 1. Full-thickness tears of supraspinatus and subscapularis tendons with cuff ar thropathy. 2. Medial dislocation of biceps tendon from bicipital groove. Mild intra-articu lar biceps tendinopathy. 3. Moderate glenohumeral joint chondrosis. 4. Severe acromioclavicular joint osteoarthritis. 5. Small glenohumeral joint effusion. Mild subacromial/subdeltoid bursitis.
== END 2024-04-09 09:21 | disposition home or self-care (01) ==
LOC: MICIMG 09:22
PROVIDERS: PCP Internal Medicine
DX: M75.121 Complete rotator cuff tear or rupture of right shoulder, not specified as traumatic (principal); G89.29 Other chronic pain; M75.21 Bicipital tendinitis, right shoulder; M94.211 Chondromalacia, right shoulder; M19.011 Primary osteoarthritis, right shoulder; M25.411 Effusion, right shoulder; M75.51 Bursitis of right shoulder; S43.084A Other dislocation of right shoulder joint, initial encounter; X58.XXXA Exposure to other specified factors, initial encounter
CPT/HCPCS: 73221

== ENCOUNTER 2024-10-25 14:40 | Outpatient (CLI) | payer MEDICARE, OTHER, SELFPAY ==
--- NOTE | ~2024-10-25 | XR_ITS ---
EXAM: XR lumbar spine 2-3V DATE: 10/25/2024 14:59 HISTORY: Low back pain . COMPARISON: None available. FINDINGS: Decreased mineralization. Uncomplicated appearing fusion hardware at the right SI joint. Tr ansitional anatomy, with bilateral sacralization of L5 and interbody fusion. 4 nonrib-bearing lumbar- type vertebral bodies. Pedicles intact. Normal vertebral body alignment. Vertebral body heights prese rved. Severe disc space narrowing with vacuum phenomenon at L4-5. Moderate mid and lower lumbar facet hypertrophy and sclerosis, with multilevel interspinous narrowing. No fracture or dislocation. Ather osclerotic aortic calcification without evident aneurysm. IMPRESSION: Osteopenia. Sacralization of L5. Severe degenerative disc disease at L4-5. Moderate mid a nd lower lumbar facet arthropathy. Reviewed, dictated and finalized at location K. IMPRESSION: Osteopenia. Sacralization of L5. Severe degenerative disc disease a t L4-5. Moderate mid and lower lumbar facet arthropathy.
== END 2024-10-25 14:41 | disposition home or self-care (01) ==
PROVIDERS: PCP Internal Medicine; Visit Provider Nurse Practitioner Family
DX: M85.80 Other specified disorders of bone density and structure, unspecified site (principal); Q76.49 Other congenital malformations of spine, not associated with scoliosis; M51.369 Other intervertebral disc degeneration, lumbar region without mention of lumbar back pain or lower extremity pain; M47.816 Spondylosis without myelopathy or radiculopathy, lumbar region
CPT/HCPCS: 72100

== ENCOUNTER 2024-11-15 14:20 | Outpatient (CLI) | payer MEDICARE, OTHER, SELFPAY ==
--- NOTE | ~2024-11-15 | MR_ITS ---
MRI of the lumbar spine Clinical History: Radiculopathy Technique: Axial T2-weighted images, and sagittal T1-weighted, T2-weighted, and and T2 fat-sat images were acquired. Findings: There is no fracture or subluxation of the lumbar spine. Vertebral bodies maintain normal h eight and alignment. No suspicious bone marrow signal abnormality seen. At L1-L2, there is no disc bulge or herniation. There is mild facet arthropathy. No central canal jenny nosis or neural foraminal narrowing. At L2-L3, there is no disc bulge or herniation. There is mild facet hypertrophy. No spinal canal sten osis or neural foraminal narrowing. At L3-L4, there is minimal disc bulge with moderate to advanced facet arthropathy. No dl central c anal stenosis or neural foraminal narrowing. At L4-L5, there is severe degenerative disc narrowing. There is mild disc bulge with probable tiny an nular fissure. There is advanced facet arthropathy. No central canal stenosis. There is mild to moder ate left neural foraminal narrowing, and mild right neural foraminal narrowing. At L5-S1, there is no disc bulge or herniation. There is no spinal canal stenosis or definite neural foraminal narrowing. Paravertebral soft tissues are unremarkable. Impression: Mild degenerative spondylosis overall, worst at L4-L5. Reviewed, dictated and finalized at [facility]. Impression: Mild degenerative spondylosis overall, worst at L4-L5.
== END 2024-11-15 14:21 | disposition home or self-care (01) ==
LOC: MICIMG 14:26
PROVIDERS: PCP Internal Medicine; Visit Provider Nurse Practitioner Family
DX: M47.816 Spondylosis without myelopathy or radiculopathy, lumbar region (principal)
CPT/HCPCS: 72148

== ENCOUNTER 2025-04-10 14:25 | Observation (INO) | payer MEDICARE, OTHER, SELFPAY ==
[2025-04-10] VITALS (10 sets, daily range): BP systolic 115–212; BP diastolic 43–77; PULSE 61–85; RESP 12–26; TEMP 36.4–36.5; O2SAT 96–99; BMI 23.0
--- NOTE | ~2025-04-10 | XR_ITS ---
Examination: XR chest 1V portable Clinical History: chest pain Comparison: None Technique: Portable AP Findings: Heart size upper limit of normal. Lungs clear. No acute bony abnormality. Breast implants with capsular calcifications. IMPRESSION: 1. No acute cardiopulmonary findings given portable technique. Reviewed, dictated and finalized at location R.
--- NOTE | ~2025-04-10 | CT_ITS ---
EXAMINATION: CTA chest PE abdomen pel, 04/10/2025 15:20 CDT HISTORY: Pulmonary embolism COMPARISON: No comparisons available. TECHNIQUE: CTA scan with 3D Reconstructions of the chest, CT of the abdomen and pelvis was performed with contrast Isovue 300, 92cc injected IV. One or more of the following dose reduction techniques were used: automated exposure control, adjustment of the mA and/or kV according to patient size, use of iterative reconstruction technique. Unless otherwise stated, incidental findings do not require dedicated follow up imaging FINDINGS: CT chest: No significant coronary calcification is present ([id number]) LUNGS: Contrast bolus adequate, there is no pulmonary embolism identified. No tracheomalacia. No bronchiectasis. Mild emphysematous changes, no bullous formation. Minimal pulmonary fibrotic changes, no honeycombing evident. Apical scarring is noted bilaterally. HEART AND PERICARDIUM: Within normal limits. AORTA: Normal caliber aorta. MEDIASTINUM: Unremarkable. THYROID: The thyroid is unremarkable. CT abdomen: LIVER: Mild hepatic steatosis. Portal vein patent. No intrahepatic biliary duct dilatation. SPLEEN: Unremarkable, no splenomegaly. KIDNEYS: Right Kidney: Unremarkable. No calculi. No hydronephrosis. Left Kidney: Unremarkable. No calculi. No hydronephrosis ADRENAL GLANDS: Unremarkable. PANCREAS: Mild pancreatic atrophy. GALLBLADDER/BILIARY: Cholelithiasis. STOMACH AND ESOPHAGUS: Small hiatal hernia. BOWEL/MESENTERY: Moderate diverticulosis, no colitis or diverticulitis. Appendix normal. Mesentery normal. No dilated bowel loops. RETROPERITONEUM: Unremarkable AORTA/VASCULATURE: Normal caliber aorta. FREE FLUID OR FREE AIR: No free fluid.. CT pelvis: SOLID ORGANS/REPRODUCTIVE: Uterus atrophic, the uterine cavity is abnormally prominent, outpatient pelvic ultrasound recommended. No adnexal mass. There is a cystic lesion of the right ovary 2 x 2 cm incompletely assessed. BLADDER: Within normal limits. LYMPHADENOPATHY: No lymphadenopathy. OSSEOUS STRUCTURES: No acute rib fractures identified. No sclerotic or lytic lesions.Fusion of the right sacroiliac joint. OVERLYING SOFT TISSUES: Bilateral breast implants. IMPRESSION: 1. Negative for pulmonary embolism. No acute intrathoracic or intra-abdominal process. 2. Incidental findings above Reviewed, dictated and finalized at location A. IMPRESSION: 1. Negative for pulmonary embolism. No acute intrathoracic or intra-abdominal p rocess. 2. Incidental findings above
--- NOTE | 2025-04-10 14:31 | ECG_ITS ---
Test Date: 2025-04-10 14:37:03 Measurements Intervals [place] Rate: 62 P: 60 KS: 155 QRS: -5 QRSD: 84 T: 55 QT: 390 QTc: 396 Interpretive Statements SINUS RHYTHM NORMAL ECG No previous ECG available for comparison Electronically Signed On 04-10-2025 16:51:58 CDT by Kaleb Schwarz M.D.
--- NOTE | 2025-04-10 14:33 | ED_ITS ---
HPI - Chest Pain General Chief Complaint: Chest Pain Stated Complaint: chest pain Time Seen by Provider: 04/10/25 14:33 Source: patient Mode of arrival: ambulatory Limitations: no limitations History of Present Illness HPI narrative: 80 years old white female came to the ED from home by ambulance complaining of pain distal sternum and across upper abdomen, lower chest woke her up from sleep at 4:00 a.m. today, sharp, stabbing radiating all the way around. Denies aggravating or relieving factors has been steady since. 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 Patient could not eat or drink because of the pain. History of bilateral tubal ligation, hypertension, hyperlipidemia. She does not smoke cigarettes or drink alcohol or use drugs. Patient declined any pain medication at this time Related Data Home Medications ?Medication ?Instructions ?Recorded ?Confirmed ?Last Taken ?Type vit cap PO 03/18/25 03/18/25 Unk nown History C,E,zinc,Wh-rtlwq-9-lutein-zeaxanthin 250 mg-2.5 mg-0.5 mg capsule Allergies Allergy/AdvReac Type Severity Reaction Status Date / Time codeine Allergy Severe Vomiting Verified 03/18/25 09:51 tramadol Allergy Severe Vomiting Verified 03/18/25 09:51 Quinolones Allergy Mild Swelling Verified 03/18/25 09:51 trazodone Allergy Mild Jittery Verified 03/18/25 09:51 Review of Systems 2 Review of Systems: All systems reviewed & are unremarkable except as noted in HPI and below PMFSH Past Medical History Medical History Anxiety Pure hypercholesterolemia Primary osteoarthritis, right shoulder Other fatigue Other chronic pain Osteoarthritis of spine with radiculopathy, cervical region Insomnia, unspecified Incomplete tear of right rotator cuff Hyperkalemia Generalized abdominal pain Encounter for HCV screening test for low risk patient Diarrhea Back pain, chronic Anemia, unspecified Adult general medical exam Adhesive capsulitis of right shoulder Acute pain of right shoulder Abnormal weight loss Abdominal cramps Surgical History Surgical History S/P fusion of sacroiliac joint 04/2023 Family History Family History Mother Patient's mother is Hypertension Depression Anxiety Heart problem Father Alcoholism Sibling Cancer Hypertension Heart problem Other Family history of alcoholism Family history of arthritis Family history of cardiovascular disease Family history of malignant neoplasm Social History Social History Smoking packs per day: 1 Smoking cigarettes per day: 20.0 Years smoked: 35 Smoking pack-years: 35.00 Smoking status: Former smoker Tobacco type: cigarettes Second hand tobacco smoke exposure: No Smoking end date: 09/23/99 Additional smoking assessment comments: quit in 1999 Alcohol intake: never Drinks per week: 3 Substance use: never Do You Feel Safe in your Home?: Yes Lack of Transportation: No Lack of Food: Never True Current Housing: I Have Housing Concerned About Future Housing: No Difficulty Paying Gas/Electric Bills: No Difficulty Paying for Meds: No Currently Unemployed: No Education: High School Diploma/GED Difficulty w/ Childcare or Family Care: No Living arrangements: alone Occupation/Education: retired Gender identity (if verbalized by the patient): Female Sexual Orientation (if Verbalized by the Patient): Straight or Heterosexual Spiritual care concerns: No Exam 2 Narrative: General appearance: Well-developed, well-nourished Skin: Normal color Head: Normocephalic, nontraumatic Eyes: Clear conjunctiva ENT: Oropharynx normal, ears normal, nose normal Neck: Supple, nontender Chest and respiratory: Airway patent, no respiratory distress, no accessory muscle use Heart: Regular rate/rhythm Abdomen: Soft, mild epigastric tenderness, no organomegaly, quiet bowel sounds Vascular: Normal peripheral pulses, normal capillary refill. Musculoskeletal: Normal range of motion, nontender back Neurologic: Alert and oriented ?3, SILVICULTURE TEACHER is normal as tested, no gross motor deficit Course Vital Signs Vital signs: Vital Signs Temperature 36.4 C 04/10/25 14:34 Pulse Rate 63 04/10/25 14:34 Respiratory Rate 26 H 04/10/25 14:34 Blood Pressure 115/51 L 04/10/25 14:34 Pulse Oximetry 97 04/10/25 14:34 Oxygen Delivery Room Air 04/10/25 14:34 Temperature 36.4 C 04/10/25 14:34 Pulse Rate 85 04/10/25 17:43 Respiratory Rate 20 04/10/25 17:43 Blood Pressure 212/74 H 04/10/25 17:43 Pulse Oximetry 96 04/10/25 17:43 Oxygen Delivery Room Air 04/10/25 14:42 MDM - Chest Pain MDM Narrative Medical decision making narrative: Patient presents with lower abdomen, lower chest sharp stabbing pain wake her up from sleep at 4:00 a.m. today Vital sign showing respiratory rate 26 otherwise within normal limit Physical examination showing slight epigastric tenderness otherwise insignificant Differential diagnosis include gastritis, esophagitis, pancreatitis, cholecystitis, pericarditis, pulmonary embolism, coronary disease, anxiety/stress related symptoms Blood workup today includes CBC, CMP, troponin, proBNP, lipase showed WBC 16.2, sodium 129, ALT 74 alkaline phosphatase 151, pro BMP 677 otherwise within normal limit CT abdomen and pelvis with IV contrast showed no acute abnormality CTA pulmonary showed no pulmonary embolism Patient still having steady epigastric retrosternal pain. She would like to eat. Admit to hospitalist Diagnosis chest pain, epigastric pain, anxiety like symptoms Differential Diagnosis Differential diagnosis: Likely other (As above) Medical Records Data Attestation: I reviewed the patient's medical records. Lab Data Attestation: I reviewed the patient's lab results. 04/10/25 14:49 04/10/25 14:49 Labs: Lab Results 04/10/25 04/10/25 04/10/25 Range/Units 14:48 14:49 17:29 WBC 16.2 H (4.5-10.0) K/mm3 RBC 4.36 (4.2-5.4) M/mm3 Hgb 13.6 (12.0-15.0) g/dL Hct 40.0 (37.0-47.0) % MCV 91.7 (80-100) fl MCH 31.2 (26-34) pg MCHC 34.0 (32-36) g/dl RDW 13.2 (11.5-14.5) % Plt Count 337 (150-375) k/mm3 MPV 8.8 (7.4-10.4) fl Immature Gran % (Auto) 0.7 H (0-0.5) % Neut % (Auto) 76.9 H (45.5-73.1) % Lymph % (Auto) 15.0 L (18.3-44.2) % Berg[place] % (Auto) 6.6 (2.6-8.5) % Eos % (Auto) 0.6 (0-4.4) % Baso % (Auto) 0.2 (0.2-1.2) % Lymph # (Auto) 2.43 (0.9-3.2) K/mm3 [place] # (Auto) 1.1 H (0.1-0.6) K/mm3 Eos # (Auto) 0.1 (0-0.3) K/mm3 Baso # (Auto) 0.0 (0.0-0.1) K/mm3 Abs Immat Gran (auto) 0.11 H (0.00-0.031) K/mm3 Absolute Neuts (auto) 12.5 H (1.3-6.7) K/mm3 Absolute Nucleated RBC 0.000 (0.0-0.012) K/mm3 Nucleated RBC % 0.0 (0.0-0.2) % PT 12.6 (11.1-14.7) Seconds INR 0.9 APTT 27.3 (22.3-36.8) Seconds Sodium 129 L (137-145) mmol/L Potassium 4.0 (3.4-5.0) mmol/L Chloride 98 (98-107) mmol/L Carbon Dioxide 24 (22-30) mmol/L Anion Gap 7 (4-12) mmol/L BUN 14 (7-17) mg/dL Creatinine 0.58 L (0.7-1.0) mg/dL Estim Creat Clear Calc 52 ml/min Estimated GFR > 60 (59 - ) Glucose 120 H (65-110) mg/dL Calcium 8.8 (8.4-10.2) mg/dL Total Bilirubin 0.6 (0.2-1.3) mg/dL AST 36 (14-36) U/L ALT 74 H (6-35) U/L Alkaline Phosphatase 151 H (38-126) U/L Troponin I < 0.012 Pending (0.000-0.034) ng/mL NT-Pro-B Natriuret Pep 677 H (19.9-100) pg/mL Total Protein 6.6 (6.3-8.2) g/dL Albumin 3.9 (3.5-5.1) g/dL Lipase 64 (23-300) U/L Imaging Data Radiologist's impression: Impressions Chest X-Ray 04/10/25 14:56 IMPRESSION: 1. No acute cardiopulmonary findings given portable technique. Chest/Abdomen/Pelvis CTA 04/10/25 16:11 IMPRESSION: 1. Negative for pulmonary embolism. No acute intrathoracic or intra-abdominal process. 2. Incidental findings above ECG Data EKG #1: Attestation: I personally reviewed and interpreted this ECG as follows: ECG completion date: 04/10/25 Interpretation: Normal sinus rhythm at 62 beats per minute, previous EKG available for comparison, normal EKG Critical Care Time Critical Care Time Critical Care Time: No Discharge Plan Discharge Clinical Impression: Chest pain, Acute hyponatremia, Anxiety Patient Disposition: Still a Patient Condition: Stable Additional Instructions: Admit to hospitalist Patient Language: Italian Prescriptions: No Action vit C,E,Zn,So-xmkuh2-ysn-zeax 250-2.5-0.5 mg capsule PO amitriptyline 50 mg tablet 50 mg PO QHS Qty: 90 2RF fluoxetine 40 mg capsule 40 mg PO HS Qty: 90 2RF ezetimibe [Zetia] 10 mg tablet 10 mg PO DAILY Qty: 90 2RF amlodipine 5 mg tablet 5 mg PO HS Qty: 90 2RF omeprazole 20 mg capsule,delayed release(DR/EC) 20 mg PO HS Qty: 90 2RF aripiprazole [Abilify] 2 mg tablet 2 mg PO DAILY Qty: 90 2RF alprazolam 0.5 mg tablet 0.5 mg PO QHS PRN (Reason: anxiety) Qty: 90 0RF diclofenac sodium 100 mg tablet extended release 24 hr See Rx Instructions .ROUTE .COMPLEX Qty: 90 0RF Dose Instruction: TAKE 1 TABLET BY MOUTH AT BEDTIME WITH FOOD Rx Instructions: TAKE 1 TABLET BY MOUTH AT BEDTIME WITH FOOD carvedilol 12.5 mg tablet 12.5 mg PO Q12H Qty: 180 2RF Rx Instructions: must administer with a meal/food fluticasone propionate 50 mcg/actuation spray,suspension 2 spray NASAL PRN PRN (Reason: nasal congestion) Qty: 16 3RF Rx Instructions: administer into each nostril Follow-up/Referrals: Peewee Lawson DO [Primary Care Provider, Internal Medicine] Quality HEART score for chest pain patients History: slightly suspicious ECG: normal Age: > or = to 65 years Risk factors: 1 or 2 risk factors Troponin: < or = to 1x normal limit Heart score: 3
[2025-04-10 14:56] LABS: Hematocrit 40.0 % (37.0-47.0); Hemoglobin 13.6 g/dL (12.0-15.0); Immature Granulocyte Percent A 0.7 % (0-0.5); Lymphocytes Absolute Auto 2.43 K/mm3 (0.9-3.2); Mean Corpuscular HGB Conc 34.0 g/dl (32-36); Mean Corpuscular Hemoglobin 31.2 pg (26-34); Mean Corpuscular Volume 91.7 fl (80-100); Nucleated Red Blood Cells Absolute Auto 0.000 K/mm3 (0.0-0.012); Nucleated Red Blood Cells Perc 0.0 % (0.0-0.2); Platelet Count Result 337 k/mm3 (150-375); Red Blood Count 4.36 M/mm3 (4.2-5.4); White Blood Count 16.2 K/mm3 (4.5-10.0)
[2025-04-10 15:06] LABS: Alanine Aminotransferase 74 U/L (6-35); Albumin Level 3.9 g/dL (3.5-5.1); Alkaline Phosphatase 151 U/L (38-126); Anion Gap 7 mmol/L (4-12); Aspartate Amino Transferase 36 U/L (14-36); Bilirubin,Total 0.6 mg/dL (0.2-1.3); Blood Urea Nitrogen 14 mg/dL (7-17); Calcium 8.8 mg/dL (8.4-10.2); Carbon Dioxide 24 mmol/L (22-30); Chloride 98 mmol/L (98-107); Estimated CRCL calculation 52 ml/min; Estimated Glomerular Filt Rate > 60; Glucose 120 mg/dL (65-110); Lipase 64 U/L (23-300); Potassium 4.0 mmol/L (3.4-5.0); Sodium 129 mmol/L (137-145); Total Protein 6.6 g/dL (6.3-8.2)
[2025-04-10 15:09] LABS: INR 0.9; Partial Thromboplastin Time 27.3 Seconds (22.3-36.8); Prothrombin Time 12.6 Seconds (11.1-14.7)
[2025-04-10 15:18] LABS: Troponin I < 0.012 ng/mL (0.000-0.034)
--- OUTSIDE RECORDS SUMMARY | 2025-04-10 15:38 | XMS_ITS | Encounter Summary ---
Author Organization [facility] Facility Care Team Providers Care Network Communications Engineer Name Role Phone Constantine Harman MD Primary Care Provider [phone] Peewee Lawson DO Primary Care Provider [phone] Encounter Details Date Type Department Care Team (Latest Contact Info) Description 06/20/2015 Orders Only [facility] CLINCON[facility] ProviderAnn Marie MD [address] [place] [address] Social History Tobacco Use Types Packs/Day Years Used Date Smoking Tobacco: Never Assessed Comments Unknown Sex and Gender Information Value Date Recorded Sex Assigned at Not on file 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 Historical Provider Final Res ult documented in this encounter Visit Diagnoses Not on filedocumented in this encounter Care Teams Network Communications Engineer Relationship Specialty Start Date End Date Constantine Harman MD [address] [facility] [address] [place], [place] [id number] PCP - General 01/22/15 04/18/24 Peewee Lawson DO [address] [facility] [address] [place] [address] PCP - General Internal Medicine 04/19/24 documented as of this encounter
--- OUTSIDE RECORDS SUMMARY | 2025-04-10 15:38 | XMS_ITS | Encounter Summary ---
Author Organization [facility] Facility Care Team Providers Care Locomotive Crane Operator Helper Name Role Phone Constantine Harman MD Primary Care Provider [phone] Peewee Lawson DO Primary Care Provider [phone] Encounter Details Date Type Department Care Team (Latest Contact Info) Description 05/24/2016 Orders Only [facility] CLINCONV ProviderAnn Marie MD [address] [place] [address] Social History Tobacco Use Types Packs/Day Years Used Date Smoking Tobacco: Never Assessed Comments Unknown Sex and Gender Information Value Date Recorded Sex Assigned at Not on file 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 Historical Provider Final Res ult documented in this encounter Visit Diagnoses Not on filedocumented in this encounter Care Teams Locomotive Crane Operator Helper Relationship Specialty Start Date End Date Constantine Harman MD [address] [facility] [address] [place], [place] [id number] PCP - General 01/22/15 04/18/24 Peewee Lawson DO [address] [facility] [address] [place] [address] PCP - General Internal Medicine 04/19/24 documented as of this encounter
--- OUTSIDE RECORDS SUMMARY | 2025-04-10 15:38 | XMS_ITS | Clinical Summary ---
Author Organization [facility] Address [address] [facility] [address] [place] [address] Phone Care Team Providers Care Customer Support Analyst Name Role Phone Unavailable Primary Care Provider Unavailabl e Medications metroNIDAZOLE (FLAGYL) 500 MG Tablet Take 1 Tab by mouth 3 times daily. 30 Tab 0 10/22/2015 Active Social History Tobacco Use Types Packs/Day Years Used Date Smoking Tobacco: Never Assessed Comments Unknown Sex and Gender Information Value Date Recorded Sex Assigned at Not on file Legal Sex Female 8:43 PM CDT Gender Identity Not on file Sexual Orientation Not on file Plan of Treatment Health Maintenance Due Date Last Done Comments Hepatitis C Virus (HCV) Screening 1945 TdaP Immunization 1945 Pneumococcal Immunization (5 0+ years) (1 of 1 - PCV) 1995 Zoster Immunization (1 of 2) 1995 Respiratory Syncytial Virus (RSV) Immunization (Adult) (1 - 1-dose 75+ series) 01/08/2020 SARS-COV-2 Immunization ( - season) 2024 Influenza Immunization (#1) 2025 Colonoscopy Discontinued 06/07/2013 Colorectal Cancer Screening Discontinued Cologuard Discontinued Hepatitis B Immunization Aged Out No longer eligible based on patient's age to complete this topic Human Papillomavirus (HPV) Immunization Aged Out No longer eligible b ased on patient's age to complete this topic Immunochemical Fecal Occult Blood Discontinued Meningococcal Immunization (ACWY) Aged Out No longer eligible based on patient's age to complete this topic Rotavirus Immunization Aged Out No lo nger eligible based on patient's age to complete this topic Procedures Procedure Name Priority Date/Time Associated Diagnosis Comments COLONOSCOPY Routine 06/07/2013 from Last 3 Months or Most Recently Relevant to Health Maintenance Results * HM COLONOSCOPY (06/07/2013) Constantine Harman PROCEDURE/MINOR SURGICAL OR DERABLES Final Result from Last 3 Months or Most Recently Relevant to Health Maintenance Insurance MEDICARE [facility] on file
--- OUTSIDE RECORDS SUMMARY | 2025-04-10 15:38 | XMS_ITS | Encounter Summary ---
Author Organization 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 Historical Provider [facility] Final Result documented in this encounter Visit Diagnoses Not on filedocumented in this encounter Care Teams Operating Theatre Technician Relationship Specialty Start Date End Date Constantine Harman MD [address] [facility] [address] [place] [address] PCP - General 01/22/15 04/18/24 Peewee Lawson DO [address] [facility] [address] [place] [address] PCP - General Internal Medicine 04/19/24 documented as of this encounter
--- OUTSIDE RECORDS SUMMARY | 2025-04-10 15:38 | XMS_ITS | Encounter Summary ---
Author Organization [facility] Facility Care Team Providers Care Harness Rigger Name Role Phone Constantine Harman MD Primary Care Provider [phone] Peewee Lawson DO Primary Care Provider [phone] Encounter Details Date Type Department Care Team (Latest Contact Info) Description 05/17/2016 Orders Only [facility] CLINCONV ProviderAnn Marie MD [address] [place] [address] Social History Tobacco Use Types Packs/Day Years Used Date Smoking Tobacco: Never Assessed Comments Unknown Sex and Gender Information Value Date Recorded Sex Assigned at Not on file 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 Historical Provider Final Res ult documented in this encounter Visit Diagnoses Not on filedocumented in this encounter Care Teams Harness Rigger Relationship Specialty Start Date End Date Constantine Harman MD [address] [facility] [address] [place], [place] [id number] PCP - General 01/22/15 04/18/24 Peewee Lawson DO [address] [facility] [address] [place] [address] PCP - General Internal Medicine 04/19/24 documented as of this encounter
--- OUTSIDE RECORDS SUMMARY | 2025-04-10 15:38 | XMS_ITS | Encounter Summary ---
Author Organization [facility] Facility Care Team Providers Care Cylinder Dyer Name Role Phone Constantine Harman MD Primary Care Provider [phone] Peewee Lawson DO Primary Care Provider [phone] Encounter Details Date Type Department Care Team (Latest Contact Info) Description 05/10/2016 Orders Only [facility] CLINCONV ProviderAnn Marie MD [address] [place] [address] Social History Tobacco Use Types Packs/Day Years Used Date Smoking Tobacco: Never Assessed Comments Unknown Sex and Gender Information Value Date Recorded Sex Assigned at Not on file 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 Historical Provider [facility] PADILLA Final Result * CARDIOLOGY REPORT (05/10/2016 12:00 AM CDT) Anatomical Region Laterality Modality Other Narrative 05/10/2016 12:00 AM CDT Ordered by an unspecified provider. us Historical Provider [facility] AD[facility] PADILLA Final Result documented in this encounter Visit Diagnoses Not on filedocumented in this encounter Care Teams Cylinder Dyer Relationship Specialty Start Date End Date Constantine Harman MD [address] [facility] [address] [place] [address] PCP - General 01/22/15 04/18/24 Peewee Lawson DO [address] [facility] [address] [place], [place] [id number] PCP - General Internal Medicine 04/19/24 documented as of this encounter
--- OUTSIDE RECORDS SUMMARY | 2025-04-10 15:38 | XMS_ITS | Patient Health Record ---
Author Organization [facility] Address [address] [place] [address] Care Team Providers Care Boom Supervisor Name Role Phone Robin Pham Unavailable [phone] LmkandiRobin pathak Unavailable Unavailable Allergies Allergen (clinical drug ingredient) Drug/Non Drug Allergy documented on EMR Reaction Allergy Type Onset Date Status codeine codeine (uncoded) Unknown Allergy Ac tive Medicinal quinolone and acting as antibacterial agent (FN) quinolones (uncoded) Unknown Allergy Active Reason For Referral No Information Medications Medication SIG (Take, Route, Fr equency, Duration) Notes Start Date End Date Status Elavil Active Amitriptyline HCl Ac tive Atorvastatin Calcium Active Lisinopril Active Voltaren Active Diclofenac Active Fluoxetine Active Social History Tobacco Use: Social History Observation Description Date Details (start date - stop date) Former Smoker NA - NA Tobacco Use/Smoking Question Answer Notes Are you a former smoker How long has it been since you last smoked? 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) Active confirmed Plan Of Treatment No Information Insurance Providers Payer Name Payer Address Payer Phone Subscriber Number Group Number Insured Name Patient Relationship to Insured Coverage Start Date Coverage End Date MEDICARE [place] [address] [address] [place] [address] [id number] Ivanna Gayle Self - patient is the insured [employer] [address] [facility] [place] [place] [phone] [id number] Ivanna Gayle Self - patient is the insured Medical (General) History Medical History History ICD Code high blood pressure osteoarthritis headaches reflux esphagitis depression anxiety Surgical History Surgery Date(Month/Year) Broken Leg 2014 Carotid Artery 2016 cataract removal 02/2017
--- OUTSIDE RECORDS SUMMARY | 2025-04-10 15:38 | XMS_ITS | Encounter Summary ---
Author Organization [facility] Facility Care Team Providers Care One Piece Expansion Maker Hand Name Role Phone Constantine Harman MD Primary Care Provider [phone] Peewee Lawson DO Primary Care Provider [phone] Encounter Details Date Type Department Care Team (Latest Contact Info) Description 05/11/2016 Orders Only [facility] CLINCONV ProviderAnn Marie MD [address] [place] [address] Social History Tobacco Use Types Packs/Day Years Used Date Smoking Tobacco: Never Assessed Comments Unknown Sex and Gender Information Value Date Recorded Sex Assigned at Not on file 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 Historical Provider Final Res ult documented in this encounter Visit Diagnoses Not on filedocumented in this encounter Care Teams One Piece Expansion Maker Hand Relationship Specialty Start Date End Date Constantine Harman MD [address] [facility] [address] [place], [place] [id number] PCP - General 01/22/15 04/18/24 Peewee Lawson DO [address] [facility] [address] [place] [address] PCP - General Internal Medicine 04/19/24 documented as of this encounter
--- OUTSIDE RECORDS SUMMARY | 2025-04-10 15:38 | XMS_ITS | Encounter Summary ---
Author Organization [facility] Facility Care Team Providers Care Timing Machine Operator Name Role Phone Constantine Harman MD Primary Care Provider [phone] Peewee Lawson DO Primary Care Provider [phone] Encounter Details Date Type Department Care Team (Latest Contact Info) Description 05/20/2016 Orders Only [facility] CLINCONV ProviderAnn Marie MD [address] [place] [address] Social History Tobacco Use Types Packs/Day Years Used Date Smoking Tobacco: Never Assessed Comments Unknown Sex and Gender Information Value Date Recorded Sex Assigned at Not on file Legal Sex Female 1:56 AM HIDE SORTER Gender Identity Female 02/27/2018 11:24 AM CDT [...] on filedocumented in this encounter Care Teams Timing Machine Operator Relationship Specialty Start Date End Date Constantine Harman MD [address] [facility] 120 [place], [place] [id number] PCP - General 01/22/15 04/18/24 Peewee Lawson DO [address] [facility] [address] [place] [address] PCP - General Internal Medicine 04/19/24 documented as of this encounter
--- OUTSIDE RECORDS SUMMARY | 2025-04-10 15:38 | XMS_ITS | Encounter Summary ---
Author Organization [facility] Facility Care Team Providers Care Net Finisher Name Role Phone Constantine Harman MD Primary Care Provider [phone] Peewee Lawson DO Primary Care Provider [phone] Encounter Details Date Type Department Care Team (Latest Contact Info) Description 05/07/2016 Orders Only [facility] CLINCONV ProviderAnn Marie MD [address] [place] [address] Social History Tobacco Use Types Packs/Day Years Used Date Smoking Tobacco: Never Assessed Comments Unknown Sex and Gender Information Value Date Recorded Sex Assigned at Not on file Legal Sex Female 1:56 AM TOOL REPAIRER Gender Identity Female 02/27/2018 11:24 AM CDT [...] on filedocumented in this encounter Care Teams Net Finisher Relationship Specialty Start Date End Date Constantine Harman MD [address] [facility] [address] [place] [address] PCP - General 01/22/15 04/18/24 Peewee Lawson DO [address] [facility] [address] [place] [address] PCP - General Internal Medicine 04/19/24 documented as of this encounter
--- OUTSIDE RECORDS SUMMARY | 2025-04-10 15:38 | XMS_ITS | Encounter Summary ---
Author Organization [facility] Facility Care Team Providers Care Agricultural Equipment Sales Manager Name Role Phone Constantine Harman MD Primary Care Provider [phone] Peewee Lawson DO Primary Care Provider [phone] Encounter Details Date Type Department Care Team (Latest Contact Info) Description 05/19/2016 Orders Only [facility] CLINCONV ProviderAnn Marie MD [address] [place] [address] Social History Tobacco Use Types Packs/Day Years Used Date Smoking Tobacco: Never Assessed Comments Unknown Sex and Gender Information Value Date Recorded Sex Assigned at Not on file Legal Sex Female 1:56 AM SIDEHAND Gender Identity Female 02/27/2018 11:24 AM CDT Sexual Orientation Not on file documented as of this encounter Plan of Treatment Not on file documented as of this encounter Procedures Procedure Name Priority Date/Time Associated Diagnosis Comments PROCEDURE - RESULT 05/19/2016 12 :00 AM CDT PROCEDURE - RESULT 05/12/2016 12 :00 AM CDT documented in this encounter Results * PROCEDURE - RESULT (05/19/2016 12:00 AM CDT) Narrative 05/19/2016 12:00 AM CDT Ordered by an unspecified provider. Historical Provider Final Res ult * PROCEDURE - RESULT (05/12/2016 12:00 AM CDT) Narrative 05/12/2016 12:00 AM CDT Ordered by an unspecified provider. us Historical Provider Final Res ult documented in this encounter Visit Diagnoses Not on filedocumented in this encounter Care Teams Agricultural Equipment Sales Manager Relationship Specialty Start Date End Date Constantine Harman MD [address] [facility] [address] [place] [address] PCP - General 01/22/15 04/18/24 Peewee Lawson DO [address] [facility] [address] [place] [address] PCP - General Internal Medicine 04/19/24 documented as of this encounter
--- OUTSIDE RECORDS SUMMARY | 2025-04-10 15:39 | XMS_ITS | Clinical Summary ---
Author Organization [facility] Building [address] Address [address] [place] [address] Care Team Providers Care Catia Designer Name Role Phone Peewee Lawson DO Primary Care Provider [phone] Allergies Active Allergy Reactions Criticality Noted Date Comments Codeine Nausea only Low Quinine Swelling Medium Of eyes Quinolones Swelling Medium Swelling of eyes Trazodone Agitation Low 05/19/2016 agitation Medications amitriptyline (ELAVIL) 50 mg tablet Take 1 tablet (50 mg total) by mouth nightly 8 Active amLODIPine (NORVASC) 5 mg tabletIndicatio ns:hypertension Take 1 tablet (5 mg total) by mouth daily 8 Active FLUoxetine (PROzac) 40 mg capsuleIndicati ons:depression Take 1 capsule (40 mg total) by mouth daily 8 Active omeprazole (PriLOSEC) 20 mg capsule Take 1 capsule (20 mg total) by mouth daily 0 Active carvediloL (COREG) 12.5 mg tablet 3 Active ALPRAZolam (XANAX) 0.5 mg tablet Take 1 tablet (0.5 mg total) by mouth nightly as needed 3 Active fluticasone propionate (FLONASE) 50 mcg/actuation nasal spray 3 Active diclofenac XR (VOTAREN XR) 100 mg 24 hr tablet 3 Active triamcinolone (KENALOG) 0.1 % cream Apply topically nightly 30 g 3 4 Active Additional Information Patient not taking.Reason: Not effective, Reported on 02/12/2025 tretinoin (RETIN-A) 0.025 % cream Apply topically nightly 45 g 3 4 Active ezetimibe (ZETIA) 10 mg tablet 4 Active ARIPiprazole (ABILIFY) 2 mg tablet Take 1 tablet (2 mg total) by mouth daily 5 Active vit I-I-jwgrml-zinc -lutein 226-90-0.8-5 mg capsule Take 1 tablet by mouth 2 (two) times a day Active Active Problems Problem Noted Date Diagnosed Date Primary hypertension 12/14/2023 Assessment & Plan (07/06/2024 10:59 AM TITLE I MATH TUTOR): Stable continue amlodipine Assessment & Plan (12/14/2023 1:03 PM CDT): Impression: Chronic stable. 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 07/03/2018 Cervical disc disorder with radiculopathy of mid-cervical region 05/10/2018 Overview (05/10/2018): Added automatically from request for surgery [id number] Osteoarthritis of spine with radiculopathy, cerv ical region 04/18/2018 Cervical radiculopathy 04/18/2018 Occipital neuralgia of left side 01/30/2018 Migraine without aura and wi thout status migrainosus, not intractable 07/03/2017 Neck pain 07/03/2017 Carotid disease, bilateral 05/07/2016 Assessment & Plan (01/04/2025 11:28 AM CDT): Greater than 70% stenosis to the right internal carotid artery with no change to the velocities from previous duplex. Continue aspirin statin therapy and follow up in 6 months for routine surveillance with carotid duplex Assessment & Plan (07/06/2024 10:59 AM TITLE I MATH TUTOR): Right ICA with severe greater than 70% stenosis, overall less than 80%. Left ICA with moderate 50-69% stenosis. Discussed management of carotid disease with the patient with recommendation for intervention at 80% stenosis and greater or if she becomes symptomatic. We will need continued risk factor modification with ASA statin therapy and good blood pressure control follow up in 6 months with a repeat carotid duplex. Assessment & Plan (12/14/2023 1:03 PM CDT): Impression: Status post right carotid endarterectomy. She remains asymptomatic. Carotid duplex reveals a patent left carotid artery and moderate restenosis to the right internal carotid artery. Plan: No surgical interventions indicated at this time. -patient to continue ongoing risk factor modifications. -patient to follow-up in 6 months for re-evaluation with repeat carotid duplex in [place] as this is closer to home. Assessment & Plan (12/02/2021 3:53 PM CDT): Pt is s/p Right carotid endartectomy 04/2016. Hx of bilateral carotid stenosis. Today denies any symptoms of stroke, weakness, numbness to either upper extremity. Denies symptoms of amourosis fugax. Plan: return in 1 year for routine surveillance with carotid US. Hyperlipidemia 05/07/2016 Assessment & Plan (07/06/2024 10:59 AM TITLE I MATH TUTOR): Recommend statin therapy. Assessment & Plan (12/14/2023 1:03 PM CDT): Impression: Chronic and stable. Plan: Continue pravastatin. Assessment & Plan (12/02/2021 3:54 PM CDT): Hyperlipidemia is currently being medically controlled. Continue medications as per PCP. Assessment & Plan (12/11/2019 3:12 PM CDT): Per patient lipid cholesterol levels are controlled. Continue current therapy per primary care physician Hypertensive heart disease 05/07/2016 Assessment & Plan (12/02/2021 3:55 PM CDT): Stable chronic hypertension being controlled with medications. Continue BP medications as per PCP. Assessment & Plan (12/11/2019 3:12 PM CDT): Patient states her blood pressure is well controlled. Continue antihypertensive regimen per primary care physician Abdominal pain 03/30/2016 Diarrhea 03/30/2016 Lipodystrophy 05/28/2014 Skin wrinkling 08/11/2010 Resolved Problems Problem Noted Date Diagnosed Date Resolved Date Occlusion and stenosis of bi lateral carotid arteries 09/07/2016 12/14/2023 Assessment & Plan (12/11/2019 3:11 PM CDT): Patient continues to do well duplex shows no progression of arterial disease. Continue risk factor modification and at this point follow-up yearly with carotid duplex. Encounters Date Type Department Care Team Description 03/19/2025 11:15 AM CDT Office Visit [facility] Medicine Surgery [address] [place] [address] [address] [place] [phone] Vidhya Tucker PA Encounter for cosmetic procedure (Primary Dx) 03/05/2025 11:15 AM CDT Office Visit [facility] Medicine Surgery [address] [place] [address] [address] [place] [phone] Vidhya Tucker PA Encounter for cosmetic procedure (Primary Dx) 02/26/2025 10:00 AM CDT Office Visit [facility] Medicine Surgery [address] [place] [address] [address] [place] [phone] Vidhya Tucker PA Encounter for cosmetic procedure (Primary Dx) 02/12/2025 11:30 AM CDT Office Visit [facility] Medicine Surgery [address] [place] [address] [address] [place] [phone] Vidhya Tucker PA Encounter for cosmetic procedure (Primary Dx) from Last 3 Months Immunizations Immunization Administration Dates Next Due Influenza, Quadrivalent, Hig h Dose, Preservative Free, Intrr 04/24/2021 Influenza, Quadrivalent, Spl it, Preservative Free, Intramuscular 05/10/2019 Influenza, Trivalent, Adjuvanted, Intramuscular 04/30/2018,05/08/2017 Influenza, Trivalent, High D ose, Split, Preservative Free, Intramuscular 04/04/2016,05/15/2015 Influenza, Trivalent, IM (MDV) 06/05/2014,2012 Surgical History Surgery Date Site/Laterality Comments CATARACT EXTRACTION KIDNEY STONE SURGERY 07/25/1983 - 07/24/1984 CAROTID ENDARTERECTOMY 05/19/2016 Right TONSILLECTOMY 07/25/1959 - 07/24/1960 TUBAL LIGATION 07/25/1975 - 07/24/1976 COMBINED AUGMENTATION MAMMAP LASTY AND ABDOMINOPLASTY 07/25/1977 - 07/24/1978 Medical History Medical History Date Comments Hypertension Osteoarthritis Headache Anxiety Depression Carotid artery disease Gastric reflux Sinusitis Family History Medical History Relation Name Comments Heart disease Brother Cancer Mother Heart disease Mother Cancer Sister Relation Name Status Comments Brother Mother Sister Social History Tobacco Use Types Packs/Day Years Used Date Smoking Tobacco: Former Cigarettes 0.9 35 1 965 - 2000 Smokeless Tobacco: Never Tobacco Cessation:Counseling Given: No Alcohol Use Standard Drinks/Week Comments Yes 0 (1 standard drink = 0.6 oz pur e alcohol) AUDIT-C Answer Date Recorded Frequency of Alcohol Consumption Not on file 02/12/2025 Average Number of Drinks Not on file 025 Q3: How often do you have si x or more drinks on one occasion? Never 02/12/2025 Comments No Sex and Gender Information Value Date Recorded Sex Assigned at Not on file Legal Sex Female 1:56 AM TITLE I MATH TUTOR Gender Identity Female 02/27/2018 11:24 AM CDT Sexual Orientation Not on file Obstetrics History Last Filed Vital Signs Vital Sign Reading Time Taken Comments Blood Pressure 157/72 01/02/2025 10:44 AM CDT Pulse 55 01/02/2025 10:44 AM CDT Temperature 36.3 C (97.3 F) 07/03/2018 11:28 AM TITLE I MATH TUTOR Respiratory Rate 16 07/03/2018 2:08 PM TITLE I MATH TUTOR Oxygen Saturation 96% 01/02/2025 10:44 AM CDT Inhaled Oxygen Concentration - - Weight 59 kg (130 lb) 02/12/2025 11:28 AM CDT Height 157.5 cm (5' 2) 02/12/2025 11:28 AM CDT Body Mass Index 23.78 02/12/2025 11:28 AM CDT Plan of Treatment Health Maintenance Due Date Last Done Comments Depression Screening 1945 Osteoporosis Screening-Bone Density Scan 1945 DTaP/Tdap/Td Vaccine (1 - Tdap) 01/08/1956 Hepatitis B Screening 1963 Zoster Vaccine (1 of 2) 1995 Well Visit 65+ 2010 Fall Risk Assessment 07/03/2019 07/03/2018, 04/18/20 18 Pneumococcal vaccine 65+ (2 of 2 - PCV) 04/21/2022 04/21/2021 Covid-19 Vaccine (6 - 2024-2 6 season) 2025 04/29/2022, 12/25/2021, 06/20/2021, Additional history exists Influenza Vaccine (#1) 2025 3, 04/29/2022, 04/24/2021, Additional history exists Goals Goal Patient Goal Type Associated Problems Recent Progress Patient-Stated? Author CCM Chronic Pain Care Plan Chronic Care Management No Kathya Felix, WESLEY Note: Problem: Chronic Pain Goals: 1. Minimize further functional decline 2. Maximize quality of life 3. Control pain Strategies: - Activity/exercise program recommendation - Conservative stepwise pain medicine strategy with multi-disciplinary approach - Recommend healthy lifestyle strategies and compensatory methods as needed Reduce the likelihood of falling Lifestyle Kathya Gamble, W[place]LEY Note: Below are four things you can do to prevent falls: 1. Begin an exercise program to improve your leg strength & balance 2. Ask your doctor or pharmacist to review your medicines 3. Get annual eye check-ups & update your eyeglasses 4. Make your home safer by: Removing clutter & tripping hazards Putting railings on all stairs & adding grab bars in the bathroom Having good lighting, especially on stairs Contact your local community or senior center for information on exercise, fall prevention programs, or options for improving home safety. Insurance [employer] CLAIMS OFFICE MEDICARE [facility] MEDICARE [facility] [place] [address] Advance Directives For more information, please contact: [phone] Documents on File Type Date Recorded Patient Knit Goods Mender Expl anation ADVANCE DIRECTIVE 05/21/2016 12:00 AM NOEM[facility] OF POINT OF SALE ASSOCIATE FINANCIAL/MEDICAL ADVANCE DIRECTIVE 05/10/2016 12:00 AM CHAUNCEY ING WILL Care Teams Catia Designer Relationship Specialty Start Date End Date Peewee Lawson DO PCP - General Internal Medicine 04/19/24
[2025-04-10 15:42] LABS: NT Pro B Type Natriuretic Pept 677 pg/mL (19.9-100)
[2025-04-10] MEDS: SODIUM CHLORIDE 0.9% IV 1,000 ML 999 ML IV CONT (16:05)
--- NOTE | 2025-04-10 17:17 | ECG_ITS ---
Test Date: 2025-04-10 17:39:13 Measurements Intervals Hoople Rate: 84 P: 67 CT: 169 QRS: 15 QRSD: 84 T: 61 QT: 350 QTc: 415 Interpretive Statements SINUS RHYTHM WITH OCCASIONAL SUPRAVENTRICULAR PREMATURE COMPLEXES ABNORMAL ECG Compared to ECG 04/10/2025 14:37:03 No significant changes Electronically Signed On 04-11-2025 07:54:49 CDT by Kaleb Schwarz M.D.
[2025-04-10 18:03] LABS: Troponin I < 0.012 ng/mL (0.000-0.034)
--- NOTE | 2025-04-10 18:54 | P.HP_ITS ---
H&P: HPI History of Present Illness Date/Time: 04/10/25 18:54 Chief Complaint: Chest pain Narrative: 80-year-old female past medical history of anxiety, chronic back pain, hypertension, hyperlipidemia presents the hospital chest/abdominal pain. Patient was brought in by EMS for epigastric pain she states that it woke her up from her sleep about 4:00 a.m.. It is sharp stabbing and radiates around the back. Patient also states that she vomited earlier today. Patient states that the pain has been constant his epigastric area going under her left breast around to her back. She states that she took it x-ray a omeprazole without any relief. She states the pain is 9/10, and became concerned so she presented to the hospital. Patient has leukocytosis at 16.2, sodium of 129, creatinine is 0.58, glucose of 120, AST of 74 alkaline phos of 151, troponins time to negative, BNP 677, CTA chest abdomen pelvis negative for PE, EKG shows sinus rhythm with PVCs. Patient will be admitted for chest pain workup. Review of Systems Review of Systems: 12 systems were reviewed and are negativ e except for as per HPI. [facility] Past Medical History Medical History Anxiety Pure hypercholesterolemia Primary osteoarthritis, right shoulder Other fatigue Other chronic pain Osteoarthritis of spine with radiculopathy, cervical region Insomnia, unspecified Incomplete tear of right rotator cuff Hyperkalemia Generalized abdominal pain Encounter for HCV screening test for low risk patient Diarrhea Back pain, chronic Anemia, unspecified Adult general medical exam Adhesive capsulitis of right shoulder Acute pain of right shoulder Abnormal weight loss Abdominal cramps Surgical History Surgical History S/P fusion of sacroiliac joint 04/2023 Family History Family History Mother Patient's mother is Hypertension Depression Anxiety Heart problem Father Alcoholism Sibling Cancer Hypertension Heart problem Other Family history of alcoholism Family history of arthritis Family history of cardiovascular disease Family history of malignant neoplasm Social History Social History Smoking packs per day: 1 Smoking cigarettes per day: 20.0 Years smoked: 35 Smoking pack-years: 35.00 Smoking status: Former smoker Tobacco type: cigarettes Second hand tobacco smoke exposure: No Smoking end date: 09/23/99 Additional smoking assessment comments: quit in 1999 Alcohol intake: never Drinks per week: 3 Substance use: never Substance use type: does not use Do You Feel Safe in your Home?: Yes Lack of Transportation: No Lack of Food: Never True Current Housing: I Have Housing Concerned About Future Housing: No Difficulty Paying Gas/Electric Bills: No Difficulty Paying for Meds: No Currently Unemployed: No Education: High School Diploma/GED Difficulty w/ Childcare or Family Care: No Living arrangements: alone Occupation/Education: retired Gender identity (if verbalized by the patient): Female Sexual Orientation (if Verbalized by the Patient): Straight or Heterosexual Spiritual care concerns: No Meds Home Medications and Allergies Home Medications ?Medication ?Instructions ?Recorded ?Confirmed ?Type amitriptyline 50 mg tablet 50 mg PO QHS #90 tabs 06/2804/10/25 Rx ezetimibe 10 mg tablet (Zetia) 10 mg PO DAILY #90 tabs 10/29/24 04/10/25 Rx fluoxetine 40 mg capsule 40 mg PO HS #90 caps 5 04/10/25 Rx amlodipine 5 mg tablet 5 mg PO HS #90 tabs 12/10/24 04/10/25 Rx omeprazole 20 mg capsule,delayed 20 mg PO HS #90 caps 01/31/25 04/10/25 Rx release aripiprazole 2 mg tablet (Abilify) 2 mg PO DAILY #90 t abs 02/14/25 04/10/25 Rx alprazolam 0.5 mg tablet 0.5 mg PO QHS PRN anxiety #9 0 tabs 02/20/25 04/10/25 Rx diclofenac sodium 100 mg See Rx Instructions .Route 0 03/04/25 04/10/25 Rx tablet,extended release 24 hr .COMPLEX #90 tabs carvedilol 12.5 mg tablet 12.5 mg PO Q12H #180 tabs 04/10/25 Rx vit 1 cap PO BID 03/18/25 History C,E,zinc,Ud-sawjm-3-lutein-zeaxanthin 250 mg-2.5 mg-0.5 mg capsule fluticasone propionate 50 2 spray intranasal PRN PRN n candice 03/29/25 04/10/25 Rx mcg/actuation nasal congestion #16 grams spray,suspension Allergies Allergy/AdvReac Type Severity Reaction Status Date / Time codeine Allergy Severe Vomiting Verified 04/10/25 20:11 Csvwcoy-LWH-YlE Reductase Allergy Severe constipatio Verified 04/10/25 20:11 Inhibitor n tramadol Allergy Severe Vomiting Verified 04/10/25 20:11 Quinolones Allergy Mild Swelling Verified 04/10/25 20:11 trazodone Allergy Mild Jittery Verified 04/10/25 20:11 Vital Signs Vital Signs - 24 hr 04/10/25 14:34 04/10/25 14:41 04/10/25 14:42 Temperature 97.6 F Pulse Rate 63 61 Respiratory Rate 26 H Blood Pressure 115/51 L Pulse Oximetry 97 Oxygen Delivery Room Air Room Air 04/10/25 17:43 04/10/25 18:42 Temperature Pulse Rate 85 66 Respiratory Rate 20 18 Blood Pressure 212/74 H 189/61 H Pulse Oximetry 96 97 Oxygen Delivery Exam Narrative: General: well appearing, appears stated age. HEENT: normocephalic, atraumatic. Mucous membranes moist. EOMI, PERRLA, bilateral sclera anicteric, no conjunctival injection. Neck supple without JVD, lymphadenopathy, or bruit. Respiratory: clear to ascultation bilaterally. No rales/rhonic/wheezes. Cardiovascular: Regular rate and rhythm, normal S1-S2 upon ascultation. No murmurs, rubs, or clicks. PMI is nondisplaced, capillary refill less than 3 second. Abdomen: Soft, round, no pulsatile masses, nondistended and nontender. No rebound, no guarding. No CVA tenderness, no hepatosplenomegaly. Bowel sounds present to all four quadrants. No high pitch or tinkling sounds, resonant to percussion. Extremities: No cyanosis, clubbing, or edema present. Pulses are palpable 2/2. Active ROM to all four extremities. Neuro: Alert and orientated x 4. PERRLA. Cranial nerves 2-12 intact without focal deficit. Skin: Warm, dry, and intact, without rash, erythema, or lesion. Psych: pleasant, cooperative, normal speech, normal affect, no hallucinations, no dysarthia H&P: Results Labs Labs: Short CBC 04/10/25 Range/Units 14:49 WBC 16.2 H (4.5-10.0) K/mm3 Hgb 13.6 (12.0-15.0) g/dL Hct 40.0 (37.0-47.0) % Plt Count 337 (150-375) k/mm3 BMP 04/10/25 14:49 Sodium 129 L Potassium 4.0 Chloride 98 Carbon Dioxide 24 BUN 14 Creatinine 0.58 L Glucose 120 H Calcium 8.8 Cardiac Enzymes 04/10/25 04/10/25 Range/Units 14:49 17:29 Troponin I < 0.012 < 0.012 (0.000-0.034) ng/mL Liver Function 04/10/25 Range/Units 14:49 Total Bilirubin 0.6 (0.2-1.3) mg/dL AST 36 (14-36) U/L ALT 74 H (6-35) U/L Alkaline Phosphatase 151 H (38-126) U/L Albumin 3.9 (3.5-5.1) g/dL Assessment and Plan Assessment and plan (1) Chest pain: Code(s): R07.9 - Chest pain, unspecified Status: Acute Assessment and Plan: Trend troponins EKG p.r.n. Aspirin Nitro GI cocktail Patient had instant relief epigastric pain from GI cocktail, will add Carafate her plan and recommend following up with GI outpatient for a scope for possible gastritis (2) Anxiety and depression: Code(s): F41.9 - Anxiety disorder, unspecified; F32.A - Depression, unspecified Status: Acute Assessment and Plan: Continue Xanax and Abilify (3) Essential (primary) hypertension: Code(s): I10 - Essential (primary) hypertension Status: Acute Assessment and Plan: Continue Norvasc and Coreg (4) Hyperlipidemia: Code(s): E78.5 - Hyperlipidemia, unspecified Status: Acute Assessment and Plan: Continue Zetia (5) Elevated LFTs: Code(s): R79.89 - Other specified abnormal findings of blood chemistry Status: Acute Assessment and Plan: CMP in the morning Quality VTE Prophylaxis VTE prophylaxis: mechanical ordered and pharmacologic ordered Hospitalist MIPS Advance Care Plan I have confirmed that the patient's Advanced Care Plan is present, code status is documented, or surrogate decision maker is listed in patient medical record.: Yes Medication Reconciliation I have utilized all available resources to obtain, update and review the patients current medications (includes all prescriptions, OTC, herbals, cannabis, and nutritional supplements).: Yes
--- NOTE | 2025-04-10 19:49 | ADMGEN ---
This patient, Ivanna Gayle, was admitted to IMU Room 212-01. Patient/family oriented to hospital policies and general routines including ID bracelet, bed and alarms, visiting hours, pain management, procedures, bathroom and other care routines, personal items, smoking policy, room service/diet, and visiting hours. Information on how to activate the Rapid Response Team has been discussed. Patient/Family are encouraged to report perceived risks to care and to ask questions if they do not understand what they are told or what they should do.
[2025-04-10 21:00] LABS: Troponin I < 0.012 ng/mL (0.000-0.034)
[2025-04-10] MEDS: BELLADONNA ALK/PHENOB ELIX 10 ML, MAG HYDROX/ALUMINUM HYD/SIMETH 30 ML, LIDOCAINE 2% VI... PO (21:37)
[2025-04-10] MEDS: AMITRIPTYLINE HCL 25 MG TABLET 50 MG PO (21:39)
[2025-04-10] MEDS: PANTOPRAZOLE SODIUM IV 40 MG VIAL IV PUSH (21:39)
[2025-04-10] MEDS: ALPRAZolam (*CRX) 0.5 MG TABLET PO (21:39)
[2025-04-10] MEDS: SUCRALFATE SUSP 100 MG/ML 10 ML UDC 1000 MG PO (23:30)
[2025-04-11] VITALS (11 sets, daily range): BP systolic 139–147; BP diastolic 51–58; PULSE 58–71; RESP 14–20; TEMP 36.1–37.2; O2SAT 92–97
--- NOTE | 2025-04-11 | ECHO_ITS ---
Patient Info Name: Ivanna Gayle Age: 80 years : 1945 Gender: Female Ht: 62 in Wt: 127 lbs BSA: 1.59 m2 HR: 56 bpm BP: 147 / 51 mmHg Technical Quality: Fair Exam Date: 04/11/2025 9:29 AM Patient Status: O Admit Date: 04/10/2025 Exam Type: CA echo doppler color flow Complete two-dimensional, color flow and Doppler transthoracic echocardiogram is performed. Staff Referring Physician: Macho Watson MD Shipping And Receiving Specialist: Fauzia Brown Attending Provider: Diogo Ramos MD Summary 1. Complete two-dimensional, color flow and Doppler transthoracic echocardiogram is performed. 2. Left ventricular chamber dimension is normal. 3. Left ventricular systolic function is normal, estimated at 65-70. 4. There is mild concentric increased left ventricular wall thickness. 5. The left ventricular diastolic function is grade I diastolic dysfunction. 6. E/e' 6 is not elevated. 7. Left atrial chamber dimension is mildly enlarged. 8. There is trace tricuspid valve regurgitation. 9. No pulmonary hypertension, estimated pulmonary arterial systolic pressure is 36 mmHg. Left Ventricle E/e' 6 is not elevated. Left ventricular chamber dimension is normal. Left ventricular systolic function is normal, estimated at 65-70. There is mild concentric increased left ventricular wall thickness. The left ventricular diastolic function is grade I diastolic dysfunction. Right Ventricle Right ventricular chamber dimension is normal. Right ventricular systolic function is normal. Left Atria Left atrial chamber dimension is mildly enlarged. Right Atria Right atrial chamber dimension is normal. Aortic Valve The aortic valve is trileaflet. There is no aortic valve stenosis. There is no aortic valve regurgitation. Pulmonic Valve There is no pulmonic regurgitation. Mitral Valve There is no mitral valve stenosis. There is no mitral valve regurgitation. Tricuspid Valve There is trace tricuspid valve regurgitation. No pulmonary hypertension, estimated pulmonary arterial systolic pressure is 36 mmHg. Pericardium/Pleural There is no pericardial effusion. Inferior Vena Cava Normal inferior vena cava with >50% collapse upon inspiration consistent with normal right atrial pressure, 5 mmHg. Aorta The aortic root size at the sinus of Valsalva is normal. Left Ventricular Outflow Tract Name Value Normal LVOT 2D LVOT Diameter 1.8 cm LVOT Doppler LVOT Peak Velocity 117 cm/s LVOT Peak Gradient 5 mmHg LVOT Mean Gradient 4 mmHg LVOT VTI 28 cm LVOT VTI/AV VTI Ratio 0.9 LVOT Stroke Volume 70 ml LVOT CO 13.9 l/min LVOT CI 8.7 l/min/m2 Pulmonic Valve Name Value Normal PV Doppler PV Peak Velocity 107 cm/s PV Peak Gradient 5 mmHg Mitral Valve Name Value Normal MV Diastolic Function MV E Peak Velocity 57 cm/s MV A Peak Velocity 68 cm/s MV E/A 0.8 MV Decel Time (PW) 358 ms MV Annular TDI MV E/e' (Septal) 6.6 MV E/e' (Lateral) 5.9 MV E/e' (Average) 6.3 Tricuspid Valve Name Value Normal TV Regurgitation Doppler TR Peak Velocity 279 cm/s TR Peak Gradient 31 mmHg Estimated PAP/RSVP RA Pressure 5 mmHg <=5 PA Systolic Pressure 36 mmHg <36 RV Systolic Pressure 36 mmHg <36 TV Annular TDI TV Lateral Monica s' Velocity 8.5 cm/s >=9.5 Aorta Name Value Normal Ascending Aorta Ao Root Diameter (MM) 2.6 cm Ao Root Diam Index (MM) 1.6 cm/m2 Aortic Valve Name Value Normal AV Doppler AV Peak Velocity 120 cm/s AV Peak Gradient 6 mmHg AV Mean Gradient 4 mmHg AV VTI 30 cm AV Area (Cont Eq VTI) 2.3 cm2 >=3.0 AV Area (Cont Eq Madi) 2.4 cm2 AV DI (Madi) 0.97 AV Regurgitation 2D LVOT Area 2.5 cm2 Ventricles Name Value Normal LV Dimensions 2D/MM IVS Diastolic Thickness (2D) 1.3 cm 0.6-1.0 LVID Diastole (2D) 3.3 cm 3.8-5.2 LVIW Diastolic Thickness (2D) 1.3 cm 0.6-0.9 LVID Systole (2D) 2.3 cm 2.2-3.5 LVOT Diameter 1.8 cm LV Mass (2D Cubed) 142.26 g 67.00-162.00 LV Mass Index (2D Cubed) 89 g/m2 43-95 Relative Wall Thickness (2D) 0.77 <=0.42 LV Fractional Shortening/Ejection Fraction 2D/MM LV Fractional Shortening (2D) 32 % 27-45 LV EF (2D Teichholz) 61 % LV Diastolic Volume (4C MOD) 79 ml LV EF (4C MOD) 76 % LV Diastolic Volume (2C MOD) 48 ml LV EF (2C MOD) 78 % LV Diastolic Volume (BP MOD) 63 ml 46-106 LV Diastolic Volume Index (BP MOD) 40 ml/m2 29-61 LV Systolic Volume (BP MOD) 14 ml 14-42 LV Systolic Volume Index (BP MOD) 9 ml/m2 8-24 LV EF (BP MOD) 78 % 54-74 LV Diastolic Length (4C) 7.8 cm LV Systolic Length (4C) 5.8 cm LV Stroke Volume (4C MOD) 60 ml RV Dimensions 2D/MM RVID Diastole (2D) 3.0 cm 2.1-3.5 Atria Name Value Normal LA Dimensions LA Dimension (MM) 3.4 cm 2.7-3.8 LA Volume (4C A-L) 44 ml LA Volume (BP A-L) 35 ml RA Dimensions RA Systolic Major [place] Length (4C) 3.8 cm 2.2-2.8 RA Area (4C) 11.6 cm2 <=18.0 Report Signatures
[2025-04-11 03:52] LABS: Hematocrit 38.0 % (37.0-47.0); Hemoglobin 12.6 g/dL (12.0-15.0); Immature Granulocyte Percent A 0.9 % (0-0.5); Lymphocytes Absolute Auto 2.66 K/mm3 (0.9-3.2); Mean Corpuscular HGB Conc 33.2 g/dl (32-36); Mean Corpuscular Hemoglobin 31.1 pg (26-34); Mean Corpuscular Volume 93.8 fl (80-100); Nucleated Red Blood Cells Absolute Auto 0.000 K/mm3 (0.0-0.012); Nucleated Red Blood Cells Perc 0.0 % (0.0-0.2); Platelet Count Result 268 k/mm3 (150-375); Red Blood Count 4.05 M/mm3 (4.2-5.4); White Blood Count 10.2 K/mm3 (4.5-10.0)
[2025-04-11 04:19] LABS: Alanine Aminotransferase 59 U/L (6-35); Albumin Level 3.4 g/dL (3.5-5.1); Alkaline Phosphatase 132 U/L (38-126); Anion Gap 5 mmol/L (4-12); Aspartate Amino Transferase 30 U/L (14-36); Bilirubin,Total 0.2 mg/dL (0.2-1.3); Blood Urea Nitrogen 11 mg/dL (7-17); Calcium 8.7 mg/dL (8.4-10.2); Carbon Dioxide 25 mmol/L (22-30); Chloride 100 mmol/L (98-107); Estimated CRCL calculation 40 ml/min; Estimated Glomerular Filt Rate > 60; Glucose 101 mg/dL (65-110); Potassium 3.8 mmol/L (3.4-5.0); Sodium 130 mmol/L (137-145); Total Protein 5.9 g/dL (6.3-8.2)
[2025-04-11] MEDS: SUCRALFATE SUSP 100 MG/ML 10 ML UDC 1000 MG PO ×2 (06:20→11:31)
[2025-04-11] MEDS: ASPIRIN 81 MG CHEWABLE TABLET PO (08:36)
[2025-04-11] MEDS: FENOFIBRATE 145 MG TABLET PO (08:37)
[2025-04-11] MEDS: PANTOPRAZOLE SODIUM IV 40 MG VIAL IV PUSH (08:37)
--- NOTE | 2025-04-11 11:48 | PM.DS ---
DS: Admitting Diagnosis Discharge Date 04/11/25 Admitting Diagnosis Chest pain DS: Discharge Diagnosis Discharge Diagnosis (1) Gastro-esophageal reflux disease without esophagitis: Code(s): K21.9 - Gastro-esophageal reflux disease without esophagitis Status: Acute DS: Summary Hospital Course Hospital Course: HPI per admitting provider: 80-year-old female past medical history of anxiety, chronic back pain, hypertension, hyperlipidemia presents the hospital chest/abdominal pain. Patient was brought in by EMS for epigastric pain she states that it woke her up from her sleep about 4:00 a.m.. It is sharp stabbing and radiates around the back. Patient also states that she vomited earlier today. Patient states that the pain has been constant his epigastric area going under her left breast around to her back. She states that she took it x-ray a omeprazole without any relief. She states the pain is 9/10, and became concerned so she presented to the hospital. Patient has leukocytosis at 16.2, sodium of 129, creatinine is 0.58, glucose of 120, AST of 74 alkaline phos of 151, troponins time to negative, BNP 677, CTA chest abdomen pelvis negative for PE, EKG shows sinus rhythm with PVCs. Patient will be admitted for chest pain workup. Overnight patient's symptoms were relieved by GI cocktail and she was placed on Carafate and her symptoms has resolved since then. Patient noted she has esophageal stricture and has an appointment scheduled with GI 05/08/25 for Upper GI scope. Encouraged to continue follow up. in the meantime she is discharged on Carafate x 14 days, continue Omeprazole. F/u with PCP in 3-5 days F/u with scheduled GI appointment. Time Spent with Patient Time attestation: Total time spent providing and/or coordinating discharge services: DS: Data Data Completed and Pending Labs on day of discharge: Labs from last 24 hours 04/11/25 04/10/25 04/10/25 03:39 20:32 17:29 WBC 10.2 H RBC 4.05 L Hgb 12.6 Hct 38.0 MCV 93.8 MCH 31.1 MCHC 33.2 RDW 13.8 Plt Count 268 MPV 8.8 Immature Gran % (Auto) 0.9 H Neut % (Auto) 59.7 Lymph % (Auto) 26.0 [place] % (Auto) 11.4 H Eos % (Auto) 1.7 Baso % (Auto) 0.3 Lymph # (Auto) 2.66 [place] # (Auto) 1.2 H Eos # (Auto) 0.2 Baso # (Auto) 0.0 Abs Immat Gran (auto) 0.09 H Absolute Neuts (auto) 6.1 Absolute Nucleated RBC 0.000 Nucleated RBC % 0.0 PT INR APTT Sodium 130 L Potassium 3.8 Chloride 100 Carbon Dioxide 25 Anion Gap 5 BUN 11 Creatinine 0.76 Estim Creat Clear Calc 40 Estimated GFR > 60 Glucose 101 Calcium 8.7 Total Bilirubin 0.2 AST 30 ALT 59 H Alkaline Phosphatase 132 H Troponin I < 0.012 < 0.012 NT-Pro-B Natriuret Pep Total Protein 5.9 L Albumin 3.4 L Lipase 04/10/25 04/10/25 14:49 14:48 WBC 16.2 H RBC 4.36 Hgb 13.6 Hct 40.0 MCV 91.7 MCH 31.2 MCHC 34.0 RDW 13.2 Plt Count 337 MPV 8.8 Immature Gran % (Auto) 0.7 H Neut % (Auto) 76.9 H Lymph % (Auto) 15.0 L [place] % (Auto) 6.6 Eos % (Auto) 0.6 Baso % (Auto) 0.2 Lymph # (Auto) 2.43 [place] # (Auto) 1.1 H Eos # (Auto) 0.1 Baso # (Auto) 0.0 Abs Immat Gran (auto) 0.11 H Absolute Neuts (auto) 12.5 H Absolute Nucleated RBC 0.000 Nucleated RBC % 0.0 PT 12.6 INR 0.9 APTT 27.3 Sodium 129 L Potassium 4.0 Chloride 98 Carbon Dioxide 24 Anion Gap 7 BUN 14 Creatinine 0.58 L Estim Creat Clear Calc 52 Estimated GFR > 60 Glucose 120 H Calcium 8.8 Total Bilirubin 0.6 AST 36 ALT 74 H Alkaline Phosphatase 151 H Troponin I < 0.012 NT-Pro-B Natriuret Pep 677 H Total Protein 6.6 Albumin 3.9 Lipase 64 Discharge Plan Discharge Attending physician on discharge: Wilbert Guerrier Discharging Clinician: Wilbert Guerrier Anticipated Discharge Date/Time: 04/11/25 11:35 Patient Disposition: Home Activity: as tolerated Diet: as tolerated and regular Patient Instructions: Antibiotic Form, Enoxaparin (By injection), Heart Failure (GEN), Depression (GEN), Suicide Prevention (GEN) Patient Language: Spanish Stand Alone Forms: General Discharge Information Follow-up/Referrals: Peewee Lawson DO [Primary Care Provider, Internal Medicine] Referral Note: F/u with PCP in 3-5 days Chris Del Valle MD [Physician, Gastroenterology] Referral Note: Continue scheduled follow up with GI on 05/08/25 Discharge Medications: New sucralfate 100 mg/mL Suspension 1,000 mg PO ACHS 14 Days Qty: 560 0RF Continued vit C,E,Zn,Tf-wozer3-gxg-zeax 250-2.5-0.5 mg capsule 1 cap PO BID amitriptyline 50 mg tablet 50 mg PO QHS Qty: 90 2RF fluoxetine 40 mg capsule 40 mg PO HS Qty: 90 2RF ezetimibe [Zetia] 10 mg tablet 10 mg PO DAILY Qty: 90 2RF amlodipine 5 mg tablet 5 mg PO HS Qty: 90 2RF omeprazole 20 mg capsule,delayed release(DR/EC) 20 mg PO HS Qty: 90 2RF aripiprazole [Abilify] 2 mg tablet 2 mg PO DAILY Qty: 90 2RF alprazolam 0.5 mg tablet 0.5 mg PO QHS PRN (Reason: anxiety) Qty: 90 0RF diclofenac sodium 100 mg tablet extended release 24 hr See Rx Instructions .ROUTE .COMPLEX Qty: 90 0RF Dose Instruction: TAKE 1 TABLET BY MOUTH AT BEDTIME WITH FOOD Rx Instructions: TAKE 1 TABLET BY MOUTH AT BEDTIME WITH FOOD carvedilol 12.5 mg tablet 12.5 mg PO Q12H Qty: 180 2RF Rx Instructions: must administer with a meal/food fluticasone propionate 50 mcg/actuation spray,suspension 2 spray NASAL PRN PRN (Reason: nasal congestion) Qty: 16 3RF Rx Instructions: administer into each nostril Date of admission: 04/10/25 18:04 Primary Care Provider: Peewee Lawson Admitting Provider: Diogo Ramos Attending physician on admission: Diogo Ramos Condition: Stable
== END 2025-04-11 12:53 | disposition home or self-care (01) ==
LOC: ANHED 18:14 → ANHIMU 22:06
PROVIDERS: Emergency Medicine; Nurse Practitioner Gerontology; Admitting Provider Family Medicine; Emergency Provider Emergency Medicine; PCP Internal Medicine; Visit Provider Internal Medicine
DX: K21.9 Gastro-esophageal reflux disease without esophagitis (principal); R79.89 Other specified abnormal findings of blood chemistry; I10 Essential (primary) hypertension; E78.5 Hyperlipidemia, unspecified; F41.8 Other specified anxiety disorders; Z82.49 Family history of ischemic heart disease and other diseases of the circulatory system; Z80.9 Family history of malignant neoplasm, unspecified; Z81.1 Family history of alcohol abuse and dependence; Z87.891 Personal history of nicotine dependence
CPT/HCPCS: 36415; 71045; 71275; 74177; 80053; 83690; 83880; 84484; 85025; 85610; 85730; 93005; 93306; 96361; 96374; 96375; 96376; 99285; A9270; G0378; J1650; J2470; J7030; Q9967

== ENCOUNTER 2025-04-23 14:28 | Outpatient (CLI) | payer MEDICARE, OTHER, SELFPAY ==
--- NOTE | ~2025-04-23 | MM_ITS ---
EXAMINATION: MM scrn joleen implant BI w alanis HISTORY: Screening mammogram TECHNIQUE: Craniocaudal and mediolateral oblique 3-D tomosynthesis images with implant displacement and synthetic 2-D images were generated. Craniocaudal and mediolateral oblique views of the breasts without implant displacement were obtained using full field digital mammography. CAD analysis was submitted and interpreted. COMPARISON: Comparison to multiple prior studies sequentially, with oldest reviewed study dated 07/11/2017. BREAST PARENCHYMAL COMPOSITION: Not dense: There are scattered areas of fibroglandular density. FINDINGS: There is no evidence of suspicious mass, calcification, or architectural distortion to suggest malignancy in either breast. There has been no suspicious interval change. IMPRESSION: 1. No mammographic evidence of malignancy. 2. Recommend routine screening mammography in one year. BI-RADS Category 1: Negative Reviewed, dictated and finalized at location B.
--- OUTSIDE RECORDS SUMMARY | 2025-04-23 14:41 | XMS_ITS | Encounter Summary ---
Author Organization [facility] Facility Care Team Providers Care Switch House Operator Name Role Phone Constantine Harman MD Primary Care Provider [phone] Peewee Lawson DO Primary Care Provider Encounter Details Date Type Department Care Team (Latest Contact Info) Description 05/24/2016 Orders Only [facility] CLINCONV ProviderAnn Marie MD [address] [place] [id number] Social History Tobacco Use Types Packs/Day Years Used Date Smoking Tobacco: Never Assessed Comments Unknown Sex and Gender Information Value Date Recorded Sex Assigned at Not on file 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
--- OUTSIDE RECORDS SUMMARY | 2025-04-23 14:41 | XMS_ITS | Encounter Summary ---
Author Organization [facility] Facility Care Team Providers Care Geographic Analyst Name Role Phone Constantine Harman MD Primary Care Provider [phone]- [phone] Peewee Lawson DO Primary Care Provider [phone] Encounter Details Date Type Department Care Team (Latest Contact Info) Description 05/10/2016 Orders Only [facility] CLINCONV ProviderAnn Marie MD [address] [place] [id number] Social History Tobacco Use Types Packs/Day Years Used Date Smoking Tobacco: Never Assessed Comments Unknown Sex and Gender Information Value Date Recorded Sex Assigned at Not on file Legal Sex Female 1:56 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
--- OUTSIDE RECORDS SUMMARY | 2025-04-23 14:41 | XMS_ITS | Encounter Summary ---
Author Organization [facility] Facility Care Team Providers Care Information Systems Specialist Name Role Phone Constantine Harman MD Primary Care Provider [phone]- [phone] Peewee Lawson DO Primary Care Provider [phone] Encounter Details Date Type Department Care Team (Latest Contact Info) Description 05/07/2016 Orders Only [facility] CLINCONV ProviderAnn Marie MD [address] [place] [address] Social History Tobacco Use Types Packs/Day Years Used Date Smoking Tobacco: Never Assessed Comments Unknown Sex and Gender Information Value Date Recorded Sex Assigned at Not on file 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
--- OUTSIDE RECORDS SUMMARY | 2025-04-23 14:41 | XMS_ITS | Clinical Summary ---
Author Organization [facility] Address [address] [facility] [address] [place] [address] Phone Care Team Providers Care Statistics Manager Name Role Phone Unavailable Primary Care Provider [...] (Adult) (1 - 1-dose 75+ series) 01/08/2020 Influenza Immunization (#1) 2025 SARS-COV-2 Immunization ( season) 2025 Colonoscopy Discontinued 06/07/2013 Colorectal Cancer Screening [...] Recently Relevant to Health Maintenance Insurance MEDICARE [facility] on file
--- OUTSIDE RECORDS SUMMARY | 2025-04-23 14:42 | XMS_ITS | Encounter Summary ---
Author Organization 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
--- OUTSIDE RECORDS SUMMARY | 2025-04-23 14:42 | XMS_ITS | Encounter Summary ---
Author Organization [facility] Care Team Providers Care Intermediate School Teacher Name Role Phone Constantine Harman MD Primary Care Provider [phone]- [phone] Peewee Lawson DO Primary Care Provider [phone] Encounter Details Date Type Department Care Team (Latest Contact Info) Description 05/17/2016 Orders Only [facility] CLINCONV ProviderAnn Marie MD [address] [place] [address] Social History Tobacco Use Types Packs/Day Years Used Date Smoking Tobacco: Never Assessed Comments Unknown Sex and Gender Information Value Date Recorded Sex Assigned at Not on file Legal Sex Female 1:56 AM RN RELIEF CHARGE Gender Identity Female 02/27/2018 11:24 AM CDT [...] on filedocumented in this encounter Care Teams Intermediate School Teacher Relationship Specialty Start Date End Date Constantine Harman MD [address] [facility] [address] [place], [place] [id number] PCP - General 01/22/15 04/18/24 Peewee Lawson DO [address] [facility] [address] [place] [address] PCP - General Internal Medicine 04/19/24 documented as of this encounter
--- OUTSIDE RECORDS SUMMARY | 2025-04-23 14:42 | XMS_ITS | Encounter Summary ---
Author Organization [facility] Facility Care Team Providers Care Pearl Digger Name Role Phone Constantine Harman MD Primary Care Provider [phone]- [phone] Peewee Lawson DO Primary Care Provider [phone] Encounter Details Date Type Department Care Team (Latest Contact Info) Description 03/22/2016 Orders Only [facility] CLINCONV ProviderAnn Marie MD [address] [place] [address] Social History Tobacco Use Types Packs/Day Years Used Date Smoking Tobacco: Never Assessed Comments Unknown Sex and Gender Information Value Date Recorded Sex Assigned at Not on file 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
--- OUTSIDE RECORDS SUMMARY | 2025-04-23 14:43 | XMS_ITS | Encounter Summary ---
Author Organization [facility] Facility Care Team Providers Care Supervising Fire Marshal Name Role Phone Constantine Harman MD Primary Care Provider [phone]- [phone] Peewee Lawson DO Primary Care Provider [phone] Encounter Details Date Type Department Care Team (Latest Contact Info) Description 06/20/2015 Orders Only [facility] CLINCONV ProviderAnn Marie MD [address] [place] [address] Social History Tobacco Use Types Packs/Day Years Used Date Smoking Tobacco: Never Assessed Comments Unknown Sex and Gender Information Value Date Recorded Sex Assigned at Not on file Legal Sex Female 1:56 AM HOME APPLIANCE WASHING MACHINE MECHANIC Gender Identity Female 02/27/2018 11:24 AM CDT [...] on filedocumented in this encounter Care Teams Supervising Fire Marshal Relationship Specialty Start Date End Date Constantine Harman MD [address] [facility] [address] [place], [place] [phone] PCP - General 01/22/15 04/18/24 Peewee Lawson DO [address] [facility] [address] [place] [address] PCP - General Internal Medicine 04/19/24 documented as of this encounter
--- OUTSIDE RECORDS SUMMARY | 2025-04-23 14:43 | XMS_ITS | Encounter Summary ---
Author Organization [facility] Facility Care Team Providers Care Manager Budget Name Role Phone Constantine Harman MD Primary Care Provider [phone]- [phone] Peewee Lawson DO Primary Care Provider [phone] Encounter Details Date Type Department Care Team (Latest Contact Info) Description 05/19/2016 Orders Only [facility] CLINCONV ProviderAnn Marie MD [address] [place] [address] Social History Tobacco Use Types Packs/Day Years Used Date Smoking Tobacco: Never Assessed Comments Unknown Sex and Gender Information Value Date Recorded Sex Assigned at Not on file Legal Sex Female 1:56 AM RESEARCH ENVIRONMENTAL ENGINEER Gender Identity Female 02/27/2018 11:24 AM CDT [...] on filedocumented in this encounter Care Teams Manager Budget Relationship Specialty Start Date End Date Constantine Harman MD [address] [place] [address] PCP - General 01/22/15 04/18/24 Peewee Lawson DO [address] [place] [address] PCP - General Internal Medicine 04/19/24 documented as of this encounter
--- OUTSIDE RECORDS SUMMARY | 2025-04-23 14:43 | XMS_ITS | Clinical Summary ---
Author Organization [facility] Address [address] [place] [address] Care Team Providers Care Pea Viner Mechanic Name Role Phone Peewee Lawson DO Primary Care Provider [phone] Allergies Active Allergy Reactions Criticality Noted Date [...] total) by mouth daily 5 Active vit A-Z-oncjzc-zinc -lutein 226-90-0.8-5 mg capsule Take 1 tablet by mouth 2 (two) times a day Active Active Problems Problem Noted Date Diagnosed Date Primary hypertension 12/14/2023 Assessment & Plan (07/06/2024 10:59 AM COMPLAINT INSPECTOR): Stable continue amlodipine Assessment & Plan (12/14/2023 1:03 PM CDT): Impression: Chronic stable. 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 Assessment & Plan (12/02/2021 3:53 PM CDT): Pt is s/p Right carotid endartectomy 04/2016. Hx of bilateral carotid stenosis. Today denies any symptoms of stroke, weakness, numbness to either upper extremity. Denies symptoms of amourosis fugax. Plan: return in 1 year for routine surveillance with carotid US. Hyperlipidemia 05/07/2016 Assessment & Plan (07/06/2024 10:59 AM COMPLAINT INSPECTOR): Recommend statin therapy. Assessment & Plan (12/14/2023 [...] Description 03/19/2025 11:15 AM CDT Office Visit [facility] [address] [place] [address] [address] [place] [address] Vidhya Tucker PA Encounter for cosmetic procedure (Primary Dx) 03/05/2025 11:15 AM CDT Office Visit [facility] [address] [place] [address] [address] [place] [address] Vidhya Tucker PA Encounter for cosmetic procedure (Primary Dx) 02/26/2025 10:00 AM CDT Office Visit [facility] [address] [place] [address] [address] [place] [address] Vidhya Tucker PA Encounter for cosmetic procedure (Primary Dx) 02/12/2025 11:30 AM CDT Office Visit [facility] [address] [place] [address] [address] [place] [address] Vidhya Tucker PA Encounter for cosmetic procedure [...] on file Legal Sex Female 1:56 AM COMPLAINT INSPECTOR Gender Identity Female 02/27/2018 11:24 AM CDT Sexual Orientation Not on file Obstetrics History Last Filed Vital Signs Vital Sign Reading Time Taken Comments Blood Pressure 157/72 01/02/2025 10:44 AM CDT Pulse 55 01/02/2025 10:44 AM CDT Temperature 36.3 C (97.3 F) 07/03/2018 11:28 AM COMPLAINT INSPECTOR Respiratory Rate 16 07/03/2018 2:08 PM COMPLAINT INSPECTOR Oxygen Saturation 96% 01/02/2025 10:44 AM CDT [...] home safety. 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
--- OUTSIDE RECORDS SUMMARY | 2025-04-23 14:43 | XMS_ITS | Encounter Summary ---
Author Organization [facility] Facility Care Team Providers Care Auto Wheel Alignment Specialist Name Role Phone Constantine Harman MD Primary Care Provider [phone] Peewee Lawson DO Primary Care Provider [phone] Encounter Details Date Type Department Care Team (Latest Contact Info) Description 05/11/2016 Orders Only [facility] CLINCONV ProviderAnn Marie MD [address] [place] [address] Social History Tobacco Use Types Packs/Day Years Used Date Smoking Tobacco: Never Assessed Comments Unknown Sex and Gender Information Value Date Recorded Sex Assigned at Not on file Legal Sex Female 1:56 AM PERSONAL CARE AID Gender Identity Female 02/27/2018 11:24 AM CDT [...] on filedocumented in this encounter Care Teams Auto Wheel Alignment Specialist Relationship Specialty Start Date End Date Constantine Harman MD [address] [facility] 120 [place], [place] [phone] PCP - General 01/22/15 04/18/24 Peewee Lawson DO [address] [facility] [address] [place] [address] PCP - General Internal Medicine 04/19/24 documented as of this encounter
== END 2025-04-23 14:29 | disposition home or self-care (01) ==
LOC: ANHFOHIMG 14:29
PROVIDERS: PCP Internal Medicine; Visit Provider Obstetrics & Gynecology
DX: Z12.31 Encounter for screening mammogram for malignant neoplasm of breast (principal)
CPT/HCPCS: 77063; 77067

== ENCOUNTER 2025-05-06 12:43 | Outpatient (CLI) | payer MEDICARE, OTHER, SELFPAY ==
--- NOTE | ~2025-05-06 | US_ITS ---
EXAMINATION: US pelvic complete DATE: 05/06/2025 13:02 INDICATION: Enlarged uterus. Abnormal findings on diagnostic imaging. TECHNIQUE: Multiple transabdominal sonographic images of the pelvis were obtained. COMPARISON: CT 04/10/25 FINDINGS: The uterus measures 5.2 x 2.0 x 3.2 cm. There is no free fluid in the pelvis. The endometrial complex measures 3 mm in thickness. The right ovary measures 2.5 x 1.5 x 2.2 cm. There is normal vascular flow in right ovary. The left ovary is not visualized. IMPRESSION: 1. Normal uterus and right ovary. 2. Left ovary not visualized. Reviewed, dictated and finalized at location E.
== END 2025-05-06 12:44 | disposition home or self-care (01) ==
PROVIDERS: PCP Internal Medicine; Visit Provider Internal Medicine
DX: R93.5 Abnormal findings on diagnostic imaging of other abdominal regions, including retroperitoneum (principal)
CPT/HCPCS: 76856

== ENCOUNTER 2025-05-08 02:23 | Day surgery (SDC) | payer MEDICARE, OTHER, SELFPAY ==
[2025-04-30 13:53] VITALS: BMI 23.3
[2025-05-08 06:45] VITALS: BP 154/53; PULSE 64; RESP 16; TEMP 36.6; O2SAT 97
[2025-05-08] MEDS: LACTATED RINGERS 1,000 ML 150 ML IV CONT (06:53)
--- NOTE | 2025-05-08 06:54 | WPDANESEPPF ---
Anes - Initial Pre Proc Eval Procedure: Operation Date: 05/08/25 07:45 Proposed Procedures p Esophagogastroduodenoscopy - Chris Del Valle MD Date/Time: 05/08/25 06:54 Surgeon: Chris Del Valle MD Pre Op Diagnosis: Dysphagia, unspecified Patient Data Age: 80 Gender: F Height: 1.57 m Weight: 56.8 kg Last Vital Signs Temp 36.6 C 05/08/25 06:45 Pulse 64 05/08/25 06:45 Resp 16 05/08/25 06:45 BP 154/53 H 05/08/25 06:45 Pulse Ox 97 05/08/25 06:45 O2 Del Method Room Air 05/08/25 06:45 Allergies Allergy/AdvReac Type Severity Reaction Status Date / Time codeine Allergy Severe Vomiting Verified 05/08/25 06:43 [id number] Reductase Allergy Severe constipatio Verified 05/08/25 06:43 Inhibitor n tramadol Allergy Severe Vomiting Verified 05/08/25 06:43 Quinolones Allergy Mild Swelling Verified 05/08/25 06:43 trazodone Allergy Mild Jittery Verified 05/08/25 06:43 Home Medications ?Medication ?Instructions ?Recorded ?Confirmed ?Type fluoxetine 40 mg capsule 40 mg PO HS #90 caps 10/29/24 05/08/25 Rx amlodipine 5 mg tablet 5 mg PO HS #90 tabs 12/10/24 05/08/25 Rx carvedilol 12.5 mg tablet 12.5 mg PO Q12H #180 tabs 03/12/25 05/08/25 Rx vit 1 cap PO BID 03/18/25 05/08/25 History C,E,zinc,Ch-ltvsp-9-lutein-zeaxanthin 250 mg-2.5 mg-0.5 mg capsule fluticasone propionate 50 2 spray intranasal PRN PRN nasal 03/29/25 05/08/25 Rx mcg/actuation nasal congestion #16 grams spray,suspension sucralfate 100 mg/mL oral 1,000 mg (10 mL) PO ACHS 14 days 04/11/25 05/08/25 Rx suspension #560 mL alprazolam 0.5 mg tablet 0.5 mg PO QHS PRN anxiety #90 tabs 04/22/25 05/08/25 Rx amitriptyline 50 mg tablet 50 mg PO QHS #90 tabs 04/29/25 05/08/25 Rx colesevelam 625 mg tablet (WelChol) 1,875 mg (3 x 625 mg) PO BID #180 05/06/25 05/08/25 Rx tabs Patient hx anesthesia problems: none Family hx anesthesia problems: none Results Review: All pre-operative results and documents have been reviewed as part of the pre-operative evaluation. [facility] Past Medical History Medical History (Updated 05/07/25 @ 13:59 by Armaan Funk DO) Chronic, continuous use of opioids Hypertension Anxiety Pure hypercholesterolemia Primary osteoarthritis, right shoulder Other fatigue Other chronic pain Osteoarthritis of spine with radiculopathy, cervical region Insomnia, unspecified Incomplete tear of right rotator cuff Hyperkalemia Generalized abdominal pain Encounter for HCV screening test for low risk patient Diarrhea Back pain, chronic Anemia, unspecified Adult general medical exam Adhesive capsulitis of right shoulder Acute pain of right shoulder Abnormal weight loss Abdominal cramps Surgical History Surgical History S/P fusion of sacroiliac joint 04/2023 Family History Family History Mother Patient's mother is Hypertension Depression Anxiety Heart problem Father Alcoholism Sibling Cancer Hypertension Heart problem Other Family history of alcoholism Family history of arthritis Family history of cardiovascular disease Family history of malignant neoplasm Social History Social History Smoking packs per day: 1 Smoking cigarettes per day: 20.0 Years smoked: 35 Smoking pack-years: 35.00 Smoking status: Former smoker Tobacco type: cigarettes Second hand tobacco smoke exposure: No Smoking end date: 09/23/99 Additional smoking assessment comments: quit in 1999 Alcohol intake: never Drinks per week: 3 Substance use: never Substance use type: does not use Do You Feel Safe in your Home?: Yes Lack of Transportation: No Lack of Food: Never True Current Housing: I Have Housing Concerned About Future Housing: No Difficulty Paying Gas/Electric Bills: No Difficulty Paying for Meds: No Currently Unemployed: No Education: High School Diploma/GED Difficulty w/ Childcare or Family Care: No Living arrangements: alone Occupation/Education: retired Gender identity (if verbalized by the patient): Female Sexual Orientation (if Verbalized by the Patient): Straight or Heterosexual Spiritual care concerns: No Anes - Eval Final PreProcedure Day of Procedure 05/08/25 06:54 Patient weight: normal Heart: regular rate and rhythm Lungs: clear to auscultation and normal air movement Airway: Mallampati scale class II Neurological: alert and oriented Last oral intake: >/= 8 hours ASA classification: II Emergent: no Anesthetic plan: proceed Anesthesia type and monitoring: general GIVS and standard monitoring Results Review: All pre-operative results and documents have been reviewed as part of the pre-operative evaluation. Informed Consent: The patient's anesthetic plan and its attendant risks and benefits were discussed with the patient/family/POA. Questions were solicited and answers provided to the satisfaction of the patient/family/POA.
--- NOTE | 2025-05-08 07:48 | PM.HPGS ---
History of Present Illness History of Present Illness Consent: Risks, benefits, and alternatives have been discussed and questions answered. Patient agrees to proceed with procedure. Chief complaint: Dysphagia, unspecified Narrative: Ivanna Gayle is a 80 year old female with dysphagia but last month also admitted for non cardiac chest pain, CT scan negative, improved after ppi Review of Systems Review of Systems: All systems reviewed & are unremarkable except as noted in HPI and below PMFSH Past Medical History Medical History (Updated 05/08/25 @ 07:49 by Chris Del Valle MD) Non-cardiac chest pain Chronic, continuous use of opioids Hypertension Anxiety Pure hypercholesterolemia Primary osteoarthritis, right shoulder Other fatigue Other chronic pain Osteoarthritis of spine with radiculopathy, cervical region Insomnia, unspecified Incomplete tear of right rotator cuff Hyperkalemia Generalized abdominal pain Encounter for HCV screening test for low risk patient Diarrhea Back pain, chronic Anemia, unspecified Adult general medical exam Adhesive capsulitis of right shoulder Acute pain of right shoulder Abnormal weight loss Abdominal cramps Surgical History Surgical History S/P fusion of sacroiliac joint 04/2023 Family History Family History Mother Patient's mother is Hypertension Depression Anxiety Heart problem Father Alcoholism Sibling Cancer Hypertension Heart problem Other Family history of alcoholism Family history of arthritis Family history of cardiovascular disease Family history of malignant neoplasm Social History Social History Smoking packs per day: 1 Smoking cigarettes per day: 20.0 Years smoked: 35 Smoking pack-years: 35.00 Smoking status: Former smoker Tobacco type: cigarettes Second hand tobacco smoke exposure: No Smoking end date: 09/23/99 Additional smoking assessment comments: quit in 1999 Alcohol intake: never Drinks per week: 3 Substance use: never Substance use type: does not use Do You Feel Safe in your Home?: Yes Lack of Transportation: No Lack of Food: Never True Current Housing: I Have Housing Concerned About Future Housing: No Difficulty Paying Gas/Electric Bills: No Difficulty Paying for Meds: No Currently Unemployed: No Education: High School Diploma/GED Difficulty w/ Childcare or Family Care: No Living arrangements: alone Occupation/Education: retired Gender identity (if verbalized by the patient): Female Sexual Orientation (if Verbalized by the Patient): Straight or Heterosexual Spiritual care concerns: No Meds Home Medications and Allergies Home Medications ?Medication ?Instructions ?Recorded ?Confirmed ?Type fluoxetine 40 mg capsule 40 mg PO HS #90 caps 10/29/24 05/08/25 Rx amlodipine 5 mg tablet 5 mg PO HS #90 tabs 12/10/24 05/08/25 Rx carvedilol 12.5 mg tablet 12.5 mg PO Q12H #180 tabs 03/12/25 05/08/25 Rx vit 1 cap PO BID 03/18/25 05/08/25 History C,E,zinc,Ke-airkc-4-lutein-zeaxanthin 250 mg-2.5 mg-0.5 mg capsule fluticasone propionate 50 2 spray intranasal PRN PRN nasal 03/29/25 05/08/25 Rx mcg/actuation nasal congestion #16 grams spray,suspension sucralfate 100 mg/mL oral 1,000 mg (10 mL) PO ACHS 14 days 04/11/25 05/08/25 Rx suspension #560 mL alprazolam 0.5 mg tablet 0.5 mg PO QHS PRN anxiety #90 tabs 04/22/25 05/08/25 Rx amitriptyline 50 mg tablet 50 mg PO QHS #90 tabs 04/29/25 05/08/25 Rx colesevelam 625 mg tablet (WelChol) 1,875 mg (3 x 625 mg) PO BID #180 05/06/25 05/08/25 Rx tabs Allergies Allergy/AdvReac Type Severity Reaction Status Date / Time codeine Allergy Severe Vomiting Verified 05/08/25 06:43 Dbggrok-JCA-AsE Reductase Allergy Severe constipatio Verified 05/08/25 06:43 Inhibitor n tramadol Allergy Severe Vomiting Verified 05/08/25 06:43 Quinolones Allergy Mild Swelling Verified 05/08/25 06:43 trazodone Allergy Mild Jittery Verified 05/08/25 06:43 Vital Signs Vital Signs - 24 hr 05/08/25 06:45 Temperature 97.8 F Pulse Rate 64 Respiratory Rate 16 Blood Pressure 154/53 H Pulse Oximetry 97 Oxygen Delivery Room Air Exam Const: General: comfortable and no acute distress HENMT: Face/Nose/Sinus: Normal nares present Eyes: General: appearance normal, both eyes and all related structures Neck: Neck: no JVD Resp: Auscultation: clear to auscultation bilaterally Cardio: Rate: regular rate Rhythm: regular rhythm GI: Inspection: non-distended GI Palp: Yes Soft to palpation Skin: General skin exam: normal color Extrem: General: normal to inspection Psych: Mental Status: mental status grossly normal Assessment and Plan Assessment and plan (1) Dysphagia: Qualifiers: Dysphagia type: esophageal phase Qualified Code(s): R13.19 - Other dysphagia Code(s): R13.10 - Dysphagia, unspecified Status: Acute Assessment and Plan: egd (2) Non-cardiac chest pain: Code(s): R07.89 - Other chest pain Status: Acute
--- NOTE | 2025-05-08 07:56 | S_PTH ---
PATIENT: Ivanna Gayle LOC: [facility]#:[id number] AGE/SX: 80/F ROOM: RE05/08/[address]: Chris Del Valle MD : 1945 BED: DIS: 05/08/2025 SPEC #: [id number] RECD: 05/08/25 10:38 STATUS: SATYA REClay #: [id number] [place]: 05/08/25 07:[address]: Chris Del Valle DEPT: [facility] Surgical RECD BY: Liz Morse ENTERED: 05/08/25 10:40 SP TYPE: Surgical OTHR DR: Peewee Lawosn DO Tissues: A - Gastric Biopsy B - Esophageal Biopsy Procedures: Hematoxylin and Eosin Stain Gross and Microscopic Level 4
[2025-05-08 07:59] VITALS: BP 146/53; PULSE 69; RESP 18; O2SAT 96
[2025-05-08 08:09] VITALS: BP 128/52; PULSE 65; RESP 20; O2SAT 96
[2025-05-08 08:19] VITALS: BP 141/60; PULSE 67; RESP 25; O2SAT 95
== END 2025-05-08 08:25 | disposition home or self-care (01) ==
PROVIDERS: PCP Internal Medicine; Referring Provider Otolaryngology; Visit Provider Internal Medicine Gastroenterology
PROC: 0DJ08ZZ Inspection of Upper Intestinal Tract, Via Natural or Artificial Opening Endoscopic (ICD-10-PCS; CPT 43239; principal; 2025-05-08 07:45)
DX: K29.50 Unspecified chronic gastritis without bleeding (principal); K44.9 Diaphragmatic hernia without obstruction or gangrene; I10 Essential (primary) hypertension; E87.5 Hyperkalemia; D64.9 Anemia, unspecified; F41.9 Anxiety disorder, unspecified; E78.00 Pure hypercholesterolemia, unspecified; M19.011 Primary osteoarthritis, right shoulder; M47.812 Spondylosis without myelopathy or radiculopathy, cervical region; G47.00 Insomnia, unspecified; R53.83 Other fatigue; G89.29 Other chronic pain; M54.9 Dorsalgia, unspecified; Z79.891 Long term (current) use of opiate analgesic; Z98.890 Other specified postprocedural states; Z87.891 Personal history of nicotine dependence; Z80.9 Family history of malignant neoplasm, unspecified; Z82.49 Family history of ischemic heart disease and other diseases of the circulatory system
CPT/HCPCS: 43239; 43450; 88305; J2704; J7120

== ENCOUNTER 2025-05-09 16:10 | Outpatient (CLI) | payer MEDICARE, OTHER, SELFPAY ==
--- NOTE | ~2025-05-09 | MR_ITS ---
EXAMINATION: MR hip RT wo con DATE: 05/09/2025 16:58 INDICATION: Left hip osteoarthritis TECHNIQUE: Magnetic resonance imaging (MRI) of the left hip was performed without intravenous contrast. Sequences included full-field axial PD-weighted FS FSE and T1-weighted FSE, coronal of the pelvis with PD-weighted FS FSE, small field of view of the affected hip with axial PD-weighted FS FSE, sagittal PD- weighted FS FSE and coronal PD weighted FS FSE. Additional radial T1-weighted FGR oriented orthogonal to the acetabular rim were obtained for evaluation of the labrum. COMPARISON: None FINDINGS: Bones/labrum/cartilage: Postoperative change of prior right sacroiliac arthrodesis with metallic field artifact associated with 3 fixation screws spanning the sacroiliac joint. Alignment is normal. No fracture, avascular necrosis or pathologic marrow replacing process. Lumbar spondylosis with severe disc height loss at L4-L5. L5 is sacralized. Osteoarthritis at the left hip with posterior predominant partial-thickness cartilage loss resulting in mild to moderate posterior predominant nonuniform joint space narrowing. Chronic degeneration of the left acetabular labrum which is been largely replaced by marginal osteophytes. Similar mild to moderate osteoarthritis and chronic labral degeneration as seen on the larger [id number] images at the contralateral left hip. Fluid: Symmetric physiologic amount of fluid within both hip joints. Small amount fluid at the left gluteus minimus bursa consistent with mild bursitis. No other abnormal fluid collections identified. Soft tissues: Normal and symmetric muscle bulk and signal in the pelvis and visualized proximal thighs. The bilateral iliopsoas, gluteal and proximal hamstring tendons are normal. Prominent sigmoid diverticulosis without adjacent from trace stranding to suggest diverticulitis. 1.8 cm right adnexal cyst. Limited eval uation of visceral organs of the pelvis is unremarkable. No pathologically enlarged pelvic/inguinal lymphadenopathy. IMPRESSION: 1. Mild to moderate osteoarthritis with chronic labral degeneration at both hips. 2. Mild right gluteus minimus bursitis. 3. Severe lower lumbar spondylosis. Reviewed, dictated and finalized at location A. IMPRESSION: 1. Mild to moderate osteoarthritis with chronic labral degeneration at both hip s. 2. Mild right gluteus minimus bursitis. 3. Severe lower lumbar spondylosis.
--- NOTE | ~2025-05-09 | XR_ITS ---
EXAMINATION: XR hip RT 2V w AP pelvis, 05/09/2025 16:55 CDT HISTORY: osteoarthritis of hip COMPARISON: No comparisons available. Findings: No acute fracture or malalignment. No significant degenerative changes. Soft tissues unremarkable. Impression: No acute fracture or malalignment. Reviewed, dictated and finalized at location P. Impression: No acute fracture or malalignment.
== END 2025-05-09 16:11 | disposition home or self-care (01) ==
LOC: MICIMG 16:12
PROVIDERS: PCP Internal Medicine; Visit Provider Physician Assistant
DX: M16.11 Unilateral primary osteoarthritis, right hip (principal); M47.896 Other spondylosis, lumbar region; M70.71 Other bursitis of hip, right hip
CPT/HCPCS: 73502; 73721